=== PATIENT | female | born 1955 | race Caucasian/White ===

== ENCOUNTER 2016-12-17 19:40 | Emergency (ER) | payer MEDICARE, OTHER ==
--- NOTE | 2016-12-17 20:00 | ER Document Report ---
ED Medical Screen (RME) - General Chief Complaint: Breathing Difficulty Stated Complaint: COUGH Mode of Arrival: Ambulatory Information source: Patient Notes: 61 y/o F presents to ED c/o sob over the last 2 days. States sob worse with exertion and laying down. Reports recently diagnosed and treated for PNA. I have greeted and performed a rapid initial assessment of this patient. A comprehensive ED assessment and evaluation of the patient, analysis of test results and completion of the medical decision making process will be conducted by additional ED providers. TRAVEL OUTSIDE OF THE [place] IN LAST 30 DAYS: No - Related Data Allergies/Adverse Reactions: adhesive [Adhesive] Allergy (Severe, Verified 02/17/16 14:22) tears skin codeine [Codeine] Allergy (Severe, Verified 02/17/16 14:22) "crazy" erythromycin base [Erythromycin Base] Allergy (Intermediate, Verified 02/17/16 14:22) Anaphylaxis Penicillins Allergy (Mild, Verified 02/17/16 14:22) Hives levofloxacin [From Levaquin] Adverse Reaction (Severe, Verified 02/17/16 14:22) Swelling of tongue Past Medical History - Past Medical History Cardiac Medical History: Reports: Hx Hypertension - on meds, Hx Peripheral Vascular Disease Denies: Hx Coronary Artery Disease, Hx Heart Attack Pulmonary Medical History: Reports: Hx Asthma, Hx COPD, Hx Pneumonia - hx of, Hx Sleep Apnea - On CPap Denies: Hx Bronchitis Neurological Medical History: Denies: Hx Cerebrovascular Accident, Hx Seizures Renal/ Medical History: Reports: Hx End Stage Renal Disease Musculoskeltal Medical History: Reports Hx Arthritis - "all over" Psychiatric Medical History: Reports: Hx Depression Past Surgical History: Reports: Hx Gastric Bypass Surgery, Hx Orthopedic Surgery - Right TKA, left rotator cuff, Hx Tonsillectomy, Hx Vascular Surgery - Left arm fistula, Other - Stem cell transplant, bone marrow biopsy. Denies: Hx Hysterectomy, Hx Pacemaker - Immunizations Hx Diphtheria, Pertussis, Tetanus Vaccination: Yes Physical Exam - General General appearance: Alert In distress: None - Respiratory Respiratory status: No respiratory distress
--- NOTE | 2016-12-17 20:32 | EKG REPORT ---
SEVERITY:- ABNORMAL ECG - SINUS RHYTHM ANTERIOR INFARCT, OLD : Confirmed by: James Ellis MD 17-Dec-2016 20:31:04
[2016-12-17 20:52] LABS: ABSOLUTE LYMPHOCYTES (AUTO) 0.7 10^3/uL (0.5-4.7); ABSOLUTE MONOCYTES (AUTO) 0.6 10^3/uL (0.1-1.4); ABSOLUTE NEUT (AUTO) 4.6 10^3/uL (1.7-8.2); BASOPHILS % (AUTO) 0.4 % (0-2); EOSINOPHILS % (AUTO) 0.7 % (0-6); HEMATOCRIT 29.8 % (36.0-47.0); HEMOGLOBIN 9.7 g/dL (12.0-15.5); HGB HCT DIFFERENCE -0.7; MEAN CORPUSCULAR HEMOGLOBIN 35.5 pg (27.0-33.4); MEAN CORPUSCULAR HGB CONC 32.4 g/dL (32.0-36.0); MEAN CORPUSCULAR VOLUME 110 fl (80-97); MONOCYTES % (AUTO) 10.4 % (3-13); RED BLOOD COUNT 2.72 10^6/uL (3.72-5.28); RED CELL DISTRIBUTION WIDTH 15.9 % (11.5-14.0); SEGMENTED NEUTROPHILS % (AUTO) 76.5 % (42-78)
--- NOTE | 2016-12-17 21:33 | ER Document Report ---
ED Respiratory Problem - General Chief Complaint: Breathing Difficulty Stated Complaint: COUGH Time seen by provider: 21:30 Mode of Arrival: Ambulatory Notes: Patient is a 61-year-old female that comes emergency department for chief complaint of 2 days of worsening shortness of breath when she lies flat. Patient states otherwise she does not have shortness of breath, she has only occasional cough, she denies fever. Patient is competent medical history including multiple myeloma, on chemotherapy, end-stage renal disease on dialysis Sunday (due tomorrow). Patient denies any fever or chills, vomiting, chest pain. Patient has oxygen to wear at home. TRAVEL OUTSIDE OF THE [place] IN LAST 30 DAYS: No - Related Data Allergies/Adverse Reactions: adhesive [Adhesive] Allergy (Severe, Verified 02/17/16 14:22) tears skin codeine [Codeine] Allergy (Severe, Verified 02/17/16 14:22) "crazy" erythromycin base [Erythromycin Base] Allergy (Intermediate, Verified 02/17/16 14:22) Anaphylaxis Penicillins Allergy (Mild, Verified 02/17/16 14:22) Hives levofloxacin [From Levaquin] Adverse Reaction (Severe, Verified 02/17/16 14:22) Swelling of tongue Past Medical History - General Information source: Patient - Social History Smoking Status: Never Smoker Frequency of alcohol use: None Drug Abuse: None Lives with: Family Family History: CAD - Father, Other - Clotting disorder-father Patient has suicidal ideation: No Patient has homicidal ideation: No - Past Medical History Cardiac Medical History: Reports: Hx Hypertension - on meds, Hx Peripheral Vascular Disease Denies: Hx Coronary Artery Disease, Hx Heart Attack Pulmonary Medical History: Reports: Hx Asthma, Hx COPD, Hx Pneumonia - hx of, Hx Sleep Apnea - On CPap Denies: Hx Bronchitis Neurological Medical History: Denies: Hx Cerebrovascular Accident, Hx Seizures Renal/ Medical History: Reports: Hx End Stage Renal Disease, Hx Peritoneal Dialysis Musculoskeltal Medical History: Reports Hx Arthritis - "all over" Psychiatric Medical History: Reports: Hx Depression Past Surgical History: Reports: Hx Gastric Bypass Surgery, Hx Orthopedic Surgery - Right TKA, left rotator cuff, Hx Tonsillectomy, Hx Vascular Surgery - Left arm fistula, Other - Stem cell transplant, bone marrow biopsy. Denies: Hx Hysterectomy, Hx Pacemaker - Immunizations Hx Diphtheria, Pertussis, Tetanus Vaccination: Yes Hx Pneumococcal Vaccination: 08/26/13 Review of Systems - Review of Systems Constitutional: No symptoms reported EENT: No symptoms reported Cardiovascular: No symptoms reported Respiratory: See HPI Gastrointestinal: No symptoms reported Genitourinary: No symptoms reported Female Genitourinary: No symptoms reported Musculoskeletal: No symptoms reported Skin: No symptoms reported Hematologic/Lymphatic: No symptoms reported Neurological/Psychological: No symptoms reported Physical Exam - Vital signs Vitals: Pulse Ox 97 12/17/16 22:17 Interpretation: Normal - General General appearance: Appears well, Alert In distress: None - Patient comfortable, conversational - HEENT Head: Normocephalic, Atraumatic Eyes: Normal Conjunctiva: Normal Extraocular movements intact: Yes Eyelashes: Normal Pupils: PERRL Nasal: Normal Mouth/Lips: Normal Mucous membranes: Normal Pharynx: Normal Neck: Normal - Respiratory Respiratory status: No respiratory distress. No: Respiratory distress, Tachypnea Chest status: Nontender Breath sounds: Normal. No: Decreased air movement, Rales, Wheezing - Cardiovascular Rhythm: Regular. No: Tachycardia Heart sounds: Normal auscultation, S1 appreciated, S2 appreciated Murmur: No - Abdominal Inspection: Normal Distension: No distension Bowel sounds: Normal Tenderness: Nontender. No: Tender, Guarding Organomegaly: No organomegaly - Back Back: Normal, Nontender. No: Tender - Extremities General upper extremity: Normal inspection, Nontender, Normal color, Normal ROM , Normal temperature General lower extremity: Normal inspection, Nontender, Normal color, Normal ROM , Normal temperature, Normal weight bearing. No: Zaheer's sign - Neurological Neuro grossly intact: Yes Cognition: Normal Orientation: AAOx4 Jareth Coma Scale Eye Opening: Spontaneous [place] Coma Scale Verbal: Oriented Jareth Coma Scale Motor: Obeys Commands Jareth Coma Scale Total: 15 Speech: Normal Cranial nerves: Normal Cerebellar coordination: Normal Motor strength normal: LUE, RUE, LLE, RLE Additional motor exam normals: Equal robotics technician Sensory: Normal - Psychological Associated symptoms: Normal affect, Normal mood - Skin Skin Temperature: Warm Skin Moisture: Dry Skin Color: Normal Course - Re-evaluation Re-evalutation: Reviewed and workup from triage. CBC shows chronic anemia, no significant change from prior. No significant change noted on EKG compared to prior. Chest x-ray shows mild vascular congestion. BNP is elevated, slightly more elevated than previous measurement. Enzymes indeterminate at 0.54 troponin, patient has end-stage renal disease and CHF. Patient is not complaining of any chest pain. On my reevaluation is patient is asymptomatic with no complaints. Patient is a comfortable, has home oxygen she is using, she even has home BiPAP she can use. No hypoxia, tachypnea, blood pressure is starting to get elevated but patient is due for blood pressure medication and she is due for dialysis at 6:00 in the morning. Patient is requesting to leave. Discussed with Dr. Rizvi. Patient is to follow-up with dialysis this morning, patient is to return if she developed chest pain, worsening shortness of breath, fever, peripheral swelling, or any other signs of worsening symptoms. Patient states satisfaction and agreement with plan. Urinalysis finally resulted, delayed because patient was unable to give an initially, this was reviewed and shows white blood cells and trace leukocyte esterase. No bacteria, no nitrites. Patient with no abdominal pain, no urinary symptoms. Sending for culture. - Vital Signs Vital signs: Temp Pulse Resp BP Pulse Ox 22 H 168/109 H 95 12/17/16 23:01 12/17/16 23:01 12/17/16 23:01 - Laboratory Result Diagrams: 12/17/16 20:30 12/17/16 21:17 Laboratory results interpreted by me: 12/17/16 12/17/16 12/17/16 20:30 20:30 21:17 RBC 2.72 L Hgb 9.7 L Hct 29.8 L MCV 110 H MCH 35.5 H RDW 15.9 H Plt Count 104 L Lymphocytes % 12.0 L Carbon Dioxide BUN Creatinine Est GFR ( Amer) Est GFR (Non-Af Amer) Alkaline Phosphatase NT-Pro-B Natriuret Pep 44999 H Total Protein Urine Protein 100 H Ur Leukocyte Esterase SMALL H 12/17/16 21:17 RBC Hgb Hct MCV MCH RDW Plt Count Lymphocytes % Carbon Dioxide 21 L BUN 35 H Creatinine 6.59 H Est GFR ( Amer) 8 L Est GFR (Non-Af Amer) 6 L Alkaline Phosphatase 172 H NT-Pro-B Natriuret Pep Total Protein 5.8 L Urine Protein Ur Leukocyte Esterase Discharge - Discharge Clinical Impression: Shortness of breath, Orthopnea Condition: Stable Disposition: HOME, SELF-CARE Additional Instructions: Chest x-ray shows mild vascular congestion, otherwise no acute abnormalities are seen. No pneumonia is shown. Follow-up with dialysis this morning as planned. Please return the emergency department if he develops any concerning or worsening symptoms including labored breathing, fever, etc.
[2016-12-17 21:44] LABS: ALANINE AMINOTRANSFERASE 27 U/L (9-52); ALBUMIN 3.8 g/dL (3.5-5.0); ALKALINE PHOSPHATASE 172 U/L (38-126); ANION GAP 15 (5-19); ASPARTATE AMINO TRANSFERASE 18 U/L (14-36); BILIRUBIN,TOTAL 0.7 mg/dL (0.2-1.3); BLOOD UREA NITROGEN 35 mg/dL (7-20); CALCIUM 8.8 mg/dL (8.4-10.2); CARBON DIOXIDE 21 mmol/L (22-30); CHLORIDE 107 mmol/L (98-107); CREATINE KINASE 33 U/L (30-135); CREATININE RESULT 6.59 mg/dL (0.52-1.25); GLUCOSE 75 mg/dL (75-110); POTASSIUM 4.1 mmol/L (3.6-5.0); SODIUM 142.9 mmol/L (137-145); TOTAL PROTEIN 5.8 g/dL (6.3-8.2)
[2016-12-17 22:08] LABS: CREATINE KINASE MB 1.06 ng/mL (<4.55)
[2016-12-17 22:10] LABS: TROPONIN I 0.058 ng/mL
[2016-12-17 22:29] LABS: APPEARANCE,URINE SLIGHTLY-CLOUDY; BILIRUBIN,URINE NEGATIVE (NEGATIVE); GLUCOSE, URINE NEGATIVE (NEGATIVE); KETONES,URINE NEGATIVE (NEGATIVE); LEUKOCYTE ESTERASE,URINE SMALL (NEGATIVE); NITRITE,URINE NEGATIVE (NEGATIVE); PROTEIN,URINE 100 mg/dL (NEGATIVE); URINE SPECIFIC GRAVITY 1.013; UROBILINOGEN,URINE NEGATIVE mg/dL (<2.0)
[2016-12-17 23:21] VITALS: BP 168/109
== END 2016-12-17 23:42 | disposition home or self-care (01) ==
LOC: ER 19:40
DX: J44.9 Chronic obstructive pulmonary disease, unspecified (principal); J45.909 Unspecified asthma, uncomplicated; D64.9 Anemia, unspecified; I13.2 Hypertensive heart and chronic kidney disease with heart failure and with stage 5 chronic kidney disease, or end stage renal disease; I50.9 Heart failure, unspecified; N18.6 End stage renal disease; R06.01 Orthopnea; R09.89 Other specified symptoms and signs involving the circulatory and respiratory systems; R05 Cough; Z99.2 Dependence on renal dialysis; Z79.899 Other long term (current) drug therapy; C90.00 Multiple myeloma not having achieved remission; Z99.81 Dependence on supplemental oxygen; Z91.048 Other nonmedicinal substance allergy status; Z88.5 Allergy status to narcotic agent; Z88.1 Allergy status to other antibiotic agents; Z88.0 Allergy status to penicillin; Z82.49 Family history of ischemic heart disease and other diseases of the circulatory system; Z87.01 Personal history of pneumonia (recurrent); Z98.84 Bariatric surgery status
CPT/HCPCS: 36415; 71020; 80053; 81001; 82550; 82553; 83880; 84484; 85025; 87086; 93005; 93010; 99285

== ENCOUNTER 2017-01-09 10:35 | Day surgery (SDC) | payer OTHER, MEDICARE ==
[~2017-01-09 10:35] MED LIST: BACITRACIN INJ 50,000 UNIT VIAL MC ONE; BACITRACIN INJ 50,000 UNIT VIAL MC PRN; VANCOMYCIN HCL 500 MG in DEXTROSE 5%-WATER 100 ML IV PRN
[2017-01-09 11:22] LABS: ABSOLUTE EOSINOPHILS # (AUTO) 0.1 10^3/uL (0.0-0.6); ABSOLUTE LYMPHOCYTES (AUTO) 1.1 10^3/uL (0.5-4.7); ABSOLUTE MONOCYTES (AUTO) 0.5 10^3/uL (0.1-1.4); ABSOLUTE NEUT (AUTO) 5.4 10^3/uL (1.7-8.2); BASOPHILS % (AUTO) 0.4 % (0-2); EOSINOPHILS % (AUTO) 1.4 % (0-6); HEMATOCRIT 38.6 % (36.0-47.0); HEMOGLOBIN 12.6 g/dL (12.0-15.5); HGB HCT DIFFERENCE -0.8; LYMPHOCYTES % (AUTO) 15.3 % (13-45); MEAN CORPUSCULAR HEMOGLOBIN 34.7 pg (27.0-33.4); MEAN CORPUSCULAR HGB CONC 32.7 g/dL (32.0-36.0); MONOCYTES % (AUTO) 6.9 % (3-13); RED BLOOD COUNT 3.64 10^6/uL (3.72-5.28); RED CELL DISTRIBUTION WIDTH 17.4 % (11.5-14.0); WHITE BLOOD COUNT 7.1 10^3/uL (4.0-10.5)
[2017-01-09 11:26] LABS: MEAN CORPUSCULAR VOLUME 106 fl (80-97)
[2017-01-09] MEDS ORDERED: OXYCODONE-ACETAMINOPHEN 5-325 MG TABLET ONE (12:01)
[2017-01-09] MEDS ORDERED: DIAZEPAM 5 MG TABLET ONE (12:01)
[2017-01-09] MEDS ORDERED: LIDOCAINE 0.5% INJ-PF (5 MG/ML) 50 ML SDV ONE (12:10)
[2017-01-09] MEDS ORDERED: FENTANYL CITRATE INJ/PF 100 MCG/2 ML AMPUL ONE (12:34)
[2017-01-09] MEDS ORDERED: MIDAZOLAM 2 MG/2 ML INJ ONE (12:34)
[2017-01-09] MEDS ORDERED: CLINDAMYCIN 300 MG/D5W RTU 300 MG/50 ML RTUPB IV ONE (13:15)
--- NOTE | 2017-01-09 14:06 | PDOC DISCHARGE SUMMARY ---
Discharge Summary (SDC) - Discharge Final Diagnosis: #1 multiple myeloma. #2 left arm AV graft. #3 end-stage renal disease on hemodialysis. #4 multiple comorbidities. Date of Surgery: 01/09/17 Discharge Date: 01/09/17 Condition: Fair Treatment or Instructions: #1 activities within moderation encouraged. #2 follow up in my office by appointment in about 1 week. Call for appointment. #3 the wounds covered clean and dry until office visit. #4 hold off on school/work until evaluation in office. #5 may shower in 48 hours, keep operated area as dry as possible. #6 discharge from ambulatory when ASU criteria met. #7 medications per medication reconciliation sheet. #8 Percocet by prescription.. Also may have one Percocet up to every 4 hours when necessary for pain greater than 4 out of 10 while in the ASU Prescriptions: Oxycodone HCl/Acetaminophen [Percocet 5-325 mg Tablet] 1 tab PO ASDIR PRN #15 tab PRN Reason: Discharge Diet: Other (Comments) - Renal Respiratory Treatments at Home: Deep Breathing/Coughing Discharge Activity: Activity As Tolerated Report the Following to Your Physician Immediately: Unusual Bleeding
--- NOTE | 2017-01-09 14:09 | Operative Report ---
Operative Report DATE OF SURGERY: 01/09/17 PREOPERATIVE DIAGNOSIS: #1 multiple myeloma. #2 left arm AV graft. #3 end- stage renal disease on hemodialysis. #4 multiple comorbidities. POSTOPERATIVE DIAGNOSIS: #1 multiple myeloma. #2 left arm AV graft. #3 end- stage renal disease on hemodialysis. #4 multiple comorbidities. OPERATION: #1 ultrasound guided insertion of right femoral vein catheter. SURGEON: MARK VELARDE PELLETIZER TENDER: none ANESTHESIA: Local TISSUE REMOVED OR ALTERED: Not applicable. COMPLICATIONS: None ESTIMATED BLOOD LOSS: 2 mL. INTRAOPERATIVE FINDINGS: Of a very small right femoral vein more under the artery then medial to it. Guidance was of great efficacy in getting safe access. Access obtained and functioning central line inserted. PROCEDURE: After obtaining informed consent, the patient was positioned supine in the catheter lab. The right groin and adjacent areas] were prepared with chlorhexidine and draped out with sterile linen. After the universal timeout the procedure commenced. A steriley sheathed ultrasound probe was used to evaluate the right femoral vein. Local anesthesia was infiltrated adjacent to the probe. Access into the right femoral was accomplished using a micropuncture needle followed, by micropuncture wire and then with a micropuncture catheter. This was followed by introduction of a 0.035 guidewire, the skin opening was enlarged slightly, serially larger dilators were now placed followed by introduction of a trial lumen catheter. All of these transitions were smooth. Each lumen was aspirated of blood and irrigated with heparinized solution. The catheter was now sutured to the skin using 3-0 nylon. A Bio A patch was now applied, followed by sterile dressings. Caps were placed on the end of the each of the lumens. The procedure concluded. Copies dictated operative report to Dr. Mark Smith MD.
--- NOTE | 2017-01-09 14:14 | Operative Report ---
Operative Report DATE OF SURGERY: 01/09/17 PREOPERATIVE DIAGNOSIS: #1 multiple myeloma. #2 left arm AV graft. #3 end- stage renal disease on hemodialysis. #4 multiple comorbidities. POSTOPERATIVE DIAGNOSIS: #1 multiple myeloma. #2 left arm AV graft. #3 end- stage renal disease on hemodialysis. #4 multiple comorbidities. OPERATION: #1 ultrasound guided insertion of right femoral vein catheter. SURGEON: MARK VELARDE COTTON GRADER: none ANESTHESIA: Local TISSUE REMOVED OR ALTERED: Not applicable. COMPLICATIONS: None ESTIMATED BLOOD LOSS: 2 mL. INTRAOPERATIVE FINDINGS: This patient in end-stage renal disease on hemodialysis through a left arm AV graft is a very great vascular access challenge. Requires intervention just about once a month to keep it open. Her veins are really small including the right femoral which is accessed for sedation today. The right internal jugular is fibrosis with only a few small tributaries. The left internal jugular vein is patent as is a portion of the external jugular. The external jugular vein was used for access and placement of the Port-A-Cath. Use of the left side was unavoidable in this case as the patient has no reasonable other options. Failing that it will be femorals. Satisfactory access was gained in the left jugular vein. Transiting into the innominate and from the innominate to the superior vena cava were challenging and required considerable manipulation. This included use of a 0.018 Glidewire and a 0.0350 wire. The latter gave excellent support for placement of the introducer sheath and the catheter. Satisfactory catheter position was obtained with the tip in the upper right atrium. Satisfactory flow of contrast through the right atrium, ventricle and pulmonary outflow tract. Documented. Easy egress of blood and ingress of heparinized solution. A tiny area of extravasation in the mediastinum was identified, testing to the challenge getting around the bend's in the innominate and superior vena cava. PROCEDURE: After obtaining informed consent, the patient was taken to the Project Controls Scheduler and positioned supine. Both sides of the neck were evaluated by ultrasound and the left selected based on the findings. The left neck and chest were prepared with chlorhexidine and draped out with sterile linen. After the " universal timeout", in which it was verified that the patient continued to receive antibiotic, the procedure commenced. A steriley sheathed ultrasound probe was used to evaluate the [right] internal jugular vein. Local anesthesia was infiltrated adjacent to the probe. Access into the left internal jugular vein was obtained using a micropuncture needle, via the external jugular vein, followed by micropuncture wire and then a micropuncture catheter. This was followed by introduction of a 0.035 guidewire the tip of which was placed down into the inferior vena cava . The port sites was marked , locally anesthetized and incision made. Dissection now proceeded to the deep subcutaneous subcutaneous tissues so that a pocket for the port was made. Meticulous hemostasis was secured and the catheter was tunneled between the 2 incisions. Proximally, the catheter was now positioned using a peel-away sheath. Distally the catheter was tailored to an appropriate length and then mated to the port using the contained fixating device. The port was now placed in the pocket and the catheter optimally positioned. The port was accessed with a Rosado needle and an angiogram done under digital subtraction. The findings as dictated. With adequate and satisfactory positioning, both lumens of the chamber were irrigated with heparinized solution. The wounds were now closed using interrupted 3-0 PDS to the subcutaneous tissues and a continuous subcuticular suture of 4-0 Monocryl to the skin. These are reinforced with Steri-Strips over benzoin and then dressings applied. Time: 2.5 Minute. Dose: 46 m Gy Contrast: 5 mls. Isovue 300. Copies of the dictated operative report for Dr. Mark Smith MD.
[2017-01-09 15:38] VITALS: BP 128/72
--- NOTE | 2017-01-09 23:53 | EKG REPORT ---
SEVERITY:- ABNORMAL ECG - SINUS RHYTHM PROBABLE LEFT ATRIAL ABNORMALITY ANTERIOR INFARCT, AGE INDETERMINATE : Confirmed by: Cisco Rojo 09-Jan-2017 23:52:34
== END 2017-01-09 15:05 | disposition home or self-care (01) ==
LOC: CCL 10:35
PROVIDERS: ATTEND Surgery
PROC: 06HM33Z Insertion of Infusion Device into Right Femoral Vein, Percutaneous Approach (ICD-10-PCS; principal; 2017-01-09)
DX: C90.00 Multiple myeloma not having achieved remission (principal); N18.6 End stage renal disease; D47.2 Monoclonal gammopathy; Z99.2 Dependence on renal dialysis; Z88.0 Allergy status to penicillin; Z88.1 Allergy status to other antibiotic agents; I12.0 Hypertensive chronic kidney disease with stage 5 chronic kidney disease or end stage renal disease; Z79.82 Long term (current) use of aspirin; Z79.899 Other long term (current) drug therapy
CPT/HCPCS: 36415; 85025; 36561; 76937; 77001; 71010; 93005; 93010; J2250; J3490 ×3; J3010; J3370; J1644

== ENCOUNTER → 2017-02-09 | Outpatient (CLI) | payer OTHER, MEDICARE | LOC: RAD 12:58 | PROVIDERS: ATTEND Specialist | DX: C90.01 Multiple myeloma in remission (principal) | CPT/HCPCS: 78816; A9552 ==

== ENCOUNTER 2017-02-10 23:53 | Emergency (ER) | payer OTHER, MEDICARE ==
--- NOTE | 2017-02-11 01:07 | ER Document Report ---
ED Extremity Problem, Lower - General Chief Complaint: Knee Pain Stated Complaint: RIGHT KNEE PAIN Time seen by provider: 01:05 Mode of Arrival: Wheelchair Information source: Patient Notes: 62-year-old female complaining of right anterior knee pain with swelling, redness, and warmth since Sunday night. getting worse since then. She is a history of gout, chemotherapy for multiple myeloma. phone nurse told her to come check within 4 hours to see if she had a DVT. TRAVEL OUTSIDE OF THE [place] IN LAST 30 DAYS: No - Related Data Allergies/Adverse Reactions: adhesive [Adhesive] Allergy (Severe, Verified 02/11/17 00:11) tears skin codeine [Codeine] Allergy (Severe, Verified 02/11/17 00:11) "crazy" erythromycin base [Erythromycin Base] Allergy (Intermediate, Verified 02/11/17 00:11) Anaphylaxis Penicillins Allergy (Mild, Verified 02/11/17 00:11) Hives levofloxacin [From Levaquin] Adverse Reaction (Severe, Verified 02/11/17 00:11) Swelling of tongue Past Medical History - General Information source: Patient - Social History Smoking Status: Current Every Day Smoker Chew tobacco use (# tins/day): No Frequency of alcohol use: Social Drug Abuse: None Family History: CAD - Father, Other - Clotting disorder-father Patient has suicidal ideation: No Patient has homicidal ideation: No - Past Medical History Cardiac Medical History: Reports: Hx Heart Attack, Hx Hypertension - on meds, Hx Peripheral Vascular Disease Pulmonary Medical History: Reports: Hx Asthma, Hx COPD, Hx Pneumonia - hx of, Hx Sleep Apnea - On CPap Renal/ Medical History: Reports: Hx End Stage Renal Disease, Hx Hemodialysis Malignancy Medical History: Reports: Other - Multiple myeloma Musculoskeltal Medical History: Reports Hx Arthritis - "all over" Psychiatric Medical History: Reports: Hx Depression Past Surgical History: Reports: Hx Gastric Bypass Surgery, Hx Orthopedic Surgery - Right TKA, left rotator cuff, Hx Tonsillectomy, Hx Vascular Surgery - Left arm fistula, Other - Stem cell transplant, bone marrow biopsy, Port-A-Cath - Immunizations Hx Diphtheria, Pertussis, Tetanus Vaccination: Yes Hx Pneumococcal Vaccination: 08/26/13 Review of Systems - Review of Systems Constitutional: No symptoms reported EENT: No symptoms reported Cardiovascular: No symptoms reported Respiratory: No symptoms reported Gastrointestinal: No symptoms reported Genitourinary: No symptoms reported Female Genitourinary: No symptoms reported Musculoskeletal: See HPI Skin: No symptoms reported Hematologic/Lymphatic: No symptoms reported Neurological/Psychological: No symptoms reported Physical Exam - Vital signs Vitals: Temp Pulse Resp BP Pulse Ox 98.7 F 83 16 143/77 H 100 02/11/17 00:00 02/11/17 00:00 02/11/17 00:00 02/11/17 00:00 02/11/17 00:00 Interpretation: Normal - General General appearance: Appears well, Alert - HEENT Head: Normocephalic, Atraumatic Eyes: Normal Conjunctiva: Normal Pupils: PERRL Neck: Supple - Respiratory Respiratory status: No respiratory distress Chest status: Nontender Breath sounds: Normal Chest palpation: Normal - Cardiovascular Rhythm: Regular Heart sounds: Normal auscultation Murmur: No - Back Back: Normal, Nontender - Extremities General upper extremity: Normal inspection, Nontender, Normal color, Normal ROM , Normal temperature General lower extremity: Normal inspection, Nontender, Normal color, Normal ROM , Normal temperature, Normal weight bearing. No: Zaheer's sign Knee: Tender - anterior right knee, red, warm, ? minimal effusion, some increase in pain with flexion Notes: faint pulses in right foot, will check with doppler - Neurological Neuro grossly intact: Yes Cognition: Normal Orientation: AAOx4 [place] Coma Scale Eye Opening: Spontaneous [place] Coma Scale Verbal: Oriented Jareth Coma Scale Motor: Obeys Commands [place] Coma Scale Total: 15 Speech: Normal Motor strength normal: LUE, RUE, LLE, RLE Sensory: Normal - Psychological Associated symptoms: Normal affect, Normal mood - Skin Skin Temperature: Warm Skin Moisture: Dry Skin Color: Normal Skin irregularity: negative: Rash Course - Re-evaluation Re-evalutation: 02/11/17 03:07 No effusion on x-ray. CBC is normal. 02/11/17 03:44 Uric acid is negative. Patient is supposed to have a angiogram on Sunday for the dialysis port. She is scheduled for dialysis on Sunday. The knee is less red than it was and is tender over the patellar tendon. The bursa is normal. B I will treat with prednisone and antibiotics. I suspect that this is a tendinitis or non-uric acid inflammation of the knee. She states she will follow-up with the orthopedic surgeon that did the knee replacement 7 years agp. most tender over the patellar tendon. No skin cellulitis. 02/11/17 03:59 - Vital Signs Vital signs: Temp Pulse Resp BP Pulse Ox 98.7 F 83 16 143/77 H 100 02/11/17 00:04 02/11/17 00:04 02/11/17 00:04 02/11/17 00:04 02/11/17 00:04 - Laboratory Result Diagrams: 02/11/17 02:50 02/11/17 02:50 Laboratory results interpreted by me: 02/11/17 02/11/17 02:50 02:50 RBC 3.23 L Hgb 11.0 L Hct 33.4 L MCV 103 H MCH 34.1 H RDW 16.9 H Plt Count 104 L BUN 48 H Creatinine 6.31 H Est GFR ( Amer) 8 L Est GFR (Non-Af Amer) 7 L Alkaline Phosphatase 155 H Total Protein 5.8 L Discharge - Discharge Clinical Impression: right anterior knee inflammation Condition: Good Disposition: HOME, SELF-CARE Instructions: Clindamycin ([facility]), Ice & Elevation ([facility]), Steroid Medication, Tendonitis ([facility]) Additional Instructions: ice, elevate use the walker see your orthopedic dr as planned next week Prescriptions: Clindamycin HCl [Cleocin 150 mg Capsule] 300 mg PO TID #42 capsule Prednisone [Deltasone 10 mg Tablet] 10 mg PO ASDIR PRN #21 tablet PRN Reason: Referrals: DAYSI DORSEY MD [Primary Care Provider] - Follow up as needed
[2017-02-11] MEDS ORDERED: LIDOCAINE 4%/TETRACAINE 0.5%/EPI 0.18% 5 ML TOPICAL SOLN TOP ONE ×2 (01:20→02:03)
[2017-02-11 02:57] LABS: ABSOLUTE EOSINOPHILS # (AUTO) 0.1 10^3/uL (0.0-0.6); ABSOLUTE MONOCYTES (AUTO) 0.6 10^3/uL (0.1-1.4); ABSOLUTE NEUT (AUTO) 5.2 10^3/uL (1.7-8.2); BASOPHILS % (AUTO) 0.4 % (0-2); EOSINOPHILS % (AUTO) 1.4 % (0-6); HEMATOCRIT 33.4 % (36.0-47.0); HGB HCT DIFFERENCE -0.4; LYMPHOCYTES % (AUTO) 13.9 % (13-45); MEAN CORPUSCULAR HEMOGLOBIN 34.1 pg (27.0-33.4); MEAN CORPUSCULAR VOLUME 103 fl (80-97); RED BLOOD COUNT 3.23 10^6/uL (3.72-5.28); RED CELL DISTRIBUTION WIDTH 16.9 % (11.5-14.0); SEGMENTED NEUTROPHILS % (AUTO) 75.3 % (42-78); WHITE BLOOD COUNT 6.9 10^3/uL (4.0-10.5)
[2017-02-11 03:13] LABS: ALANINE AMINOTRANSFERASE 20 U/L (9-52); ALBUMIN 3.6 g/dL (3.5-5.0); ALKALINE PHOSPHATASE 155 U/L (38-126); ANION GAP 19 (5-19); ASPARTATE AMINO TRANSFERASE 15 U/L (14-36); BILIRUBIN,TOTAL 0.4 mg/dL (0.2-1.3); BLOOD UREA NITROGEN 48 mg/dL (7-20); CALCIUM 8.8 mg/dL (8.4-10.2); CARBON DIOXIDE 23 mmol/L (22-30); CHLORIDE 100 mmol/L (98-107); CREATININE RESULT 6.31 mg/dL (0.52-1.25); GLUCOSE 90 mg/dL (75-110); POTASSIUM 3.8 mmol/L (3.6-5.0); SODIUM 141.9 mmol/L (137-145); TOTAL PROTEIN 5.8 g/dL (6.3-8.2); URIC ACID 4.3 mg/dL (2.5-7.5)
[2017-02-11] MEDS ORDERED: CLINDAMYCIN HCL 150 MG CAPSULE PO ONE (03:48)
[2017-02-11] MEDS ORDERED: PREDNISONE 20 MG TABLET PO ONE (03:50)
[2017-02-11 04:57] VITALS: BP 135/75
== END 2017-02-11 04:40 | disposition home or self-care (01) ==
LOC: ER 23:53
DX: M17.11 Unilateral primary osteoarthritis, right knee (principal); M25.561 Pain in right knee; F17.200 Nicotine dependence, unspecified, uncomplicated; J44.9 Chronic obstructive pulmonary disease, unspecified; I12.0 Hypertensive chronic kidney disease with stage 5 chronic kidney disease or end stage renal disease; N18.6 End stage renal disease; Z96.651 Presence of right artificial knee joint; Z88.0 Allergy status to penicillin; Z88.6 Allergy status to analgesic agent; Z98.84 Bariatric surgery status; Z99.2 Dependence on renal dialysis; I25.2 Old myocardial infarction
CPT/HCPCS: 36591; 99283; 36415; 84550; 85025; 80053; 73564; J7512; J3490

== ENCOUNTER 2017-11-05 12:33 | Emergency (ER) | payer OTHER, MEDICARE ==
[2017-11-05] MEDS ORDERED: IPRATROPIUM/ALBUTEROL 0.5-2.5 MG/3 ML AMPUL NEB ONE (13:01)
--- NOTE | 2017-11-05 13:01 | ER Document Report ---
ED Medical Screen (RME) - General Mode of Arrival: Ambulatory Information source: Patient TRAVEL OUTSIDE OF THE [place] IN LAST 30 DAYS: No COUNTRY TRAVELED TO/FROM: [place] <RUEL MAI - Last Filed: 11/05/17 13:57> <JERRELL GARCIA - Last Filed: 11/05/17 18:40> - General Chief Complaint: Shortness Of Breath Stated Complaint: COUGH,CONGESTION,SHORT OF BREATH Time Seen by Provider: 11/05/17 12:55 Notes: Patient is a 62 year old female with a history of myeloma cancer and pneumonia presents to the emergency department complaining of multiple symptoms including cough with green sputum, congestion and shortness of breath onset 2 days ago. Patient states that she also had a low grade fever 2 nights ago. Patient was sent here by Dr. Bower after receiving dialysis this morning. Patient states that she has oxygen at home that she uses as needed. GENERAL: Alert, interacts well. No acute distress. LUNGS: Coarseness with mild wheezing. No respiratory distress. HEART: Regular rate and rhythm. No murmurs, gallops, or rubs. I have greeted and performed a rapid initial assessment of this patient. A comprehensive ED assessment and evaluation of the patient, analysis of test results and completion of the medical decision making process will be conducted by additional ED providers. (RUEL MAI) - Related Data Allergies/Adverse Reactions: adhesive [Adhesive] Allergy (Severe, Verified 11/05/17 12:35) tears skin codeine [Codeine] Allergy (Severe, Verified 11/05/17 12:35) "crazy" erythromycin base [Erythromycin Base] Allergy (Intermediate, Verified 11/05/17 12:35) Anaphylaxis Penicillins Allergy (Mild, Verified 11/05/17 12:35) Hives levofloxacin [From Levaquin] Adverse Reaction (Severe, Verified 11/05/17 12:35) Swelling of tongue Home Medications: Current Home Medications Folic Acid/Vit B Complex and C [Dialyvite 800 Tablet] 1 tab PO DAILY 11/05/17 [ History] Metoprolol Tartrate [Lopressor 100 mg Tablet] 1 tab PO BID 11/05/17 [History] Past Medical History - Past Medical History Cardiac Medical History: Reports: Hx Heart Attack - POSSIBLE CT IN 2014?, Hx Hypertension - ON MEDICATION, Hx Peripheral Vascular Disease Denies: Hx Coronary Artery Disease Pulmonary Medical History: Reports: Hx Bronchitis, Hx Pneumonia - HX. OF OCTOBER 2016, Hx Sleep Apnea - On CPap Denies: Hx Asthma, Hx COPD Neurological Medical History: Denies: Hx Cerebrovascular Accident, Hx Seizures Renal/ Medical History: Reports: Hx End Stage Renal Disease, Hx Hemodialysis, Hx Peritoneal Dialysis Musculoskeltal Medical History: Reports Hx Arthritis - ALL OVER Psychiatric Medical History: Reports: Hx Depression Past Surgical History: Reports: Hx Gastric Bypass Surgery, Hx Orthopedic Surgery - Right TKA, left rotator cuff, Hx Tonsillectomy, Hx Vascular Surgery - Left arm fistula, Other - Stem cell transplant, bone marrow biopsy, Port-A- Cath. Denies: Hx Hysterectomy, Hx Pacemaker - Immunizations Hx Diphtheria, Pertussis, Tetanus Vaccination: Yes History of Influenza Vaccine for 08/2017 - 01/2018 Season: Yes Influenza Administration Date for 08/2017 - 01/2018 Season: 08/25/17 <RUEL MAI - Last Filed: 11/05/17 13:57> - Vital signs Vitals: Temp Pulse Resp BP Pulse Ox 99.7 F 96 18 154/85 H 92 11/05/17 12:42 11/05/17 12:42 11/05/17 12:42 11/05/17 12:42 11/05/17 12:42 Course - Laboratory Result Diagrams: 11/05/17 15:52 11/05/17 15:52 <JERRELL GARCIA - Last Filed: 11/05/17 18:40> - Vital Signs Vital signs: Temp Pulse Resp BP Pulse Ox 102.1 F H 103 H 20 136/81 H 90 L 11/05/17 18:33 11/05/17 18:33 11/05/17 18:33 11/05/17 18:33 11/05/17 18:33 - Laboratory Laboratory results interpreted by me: 11/05/17 11/05/17 15:52 15:52 RBC 2.73 L Hgb 9.4 L Hct 28.4 L MCV 104 H MCH 34.6 H RDW 16.7 H Plt Count 107 L Seg Neutrophils % 83.8 H Lymphocytes % 7.5 L Absolute Lymphocytes 0.4 L BUN 21 H Creatinine 4.17 H Est GFR ( Amer) 13 L Est GFR (Non-Af Amer) 11 L Direct Bilirubin 0.6 H Alkaline Phosphatase 153 H Total Protein 5.9 L Doctor's Discharge <RUEL MAI - Last Filed: 11/05/17 13:57> <JERRELL GARCIA - Last Filed: 11/05/17 18:40> - Discharge Clinical Impression: Nasal congestion, Cough Condition: Good Disposition: HOME, SELF-CARE Additional Instructions: Please come back immediately with any worsening cough, fevers, vomiting, leg swelling, pain, worsening shortness of breath, or any other acute problems. Please take 2 puffs of the albuterol inhaler every 4-6 hours as needed for the next 48 hours. Please make sure that she follow-up with your primary care physician as we have discussed and have help to expedite. Referrals: NOAM JIMENEZ MD [ACTIVE STAFF] - Follow up as needed Scribe Documentation - Scribe Written by Adame:: Heaven Quinteros, 11/05/2017 13:12 acting as scribe for :: Emil <RUEL MAI - Last Filed: 11/05/17 13:57>
--- NOTE | 2017-11-05 13:33 | EKG REPORT ---
SEVERITY:- ABNORMAL ECG - SINUS RHYTHM BIATRIAL ABNORMALITIES CONSIDER ANTEROSEPTAL INFARCT NONSPECIFIC T ABNORMALITIES, LATERAL LEADS BORDERLINE PROLONGED QT INTERVAL : Confirmed by: Cisco Rojo 05-Nov-2017 13:32:12
[2017-11-05] MEDS ORDERED: LIDOCAINE 4% TRANSPARENT DRESSING 5 GM KIT TP ONE (13:56)
--- NOTE | 2017-11-05 14:03 | RADIOLOGY REPORT (SQ) ---
EXAM DESCRIPTION: CHEST PA/LAT COMPLETED DATE/TIME: 11/05/2017 1:51 pm REASON FOR STUDY: Dyspnea COMPARISON: 09/11/2017 EXAM PARAMETERS: NUMBER OF VIEWS: two views TECHNIQUE: Digital Frontal and Lateral radiographic views of the chest acquired. RADIATION DOSE: NA LIMITATIONS: none FINDINGS: LUNGS AND PLEURA: No opacities, masses or pneumothorax. No pleural effusion. MEDIASTINUM AND HILAR STRUCTURES: No masses or contour abnormalities. HEART AND VASCULAR STRUCTURES: Heart normal size. No evidence for failure. BONES: No acute findings. HARDWARE: Unchanged position of left-sided port. Left axillary stent. OTHER: No other significant finding. IMPRESSION: NO ACUTE RADIOGRAPHIC FINDING IN THE CHEST. TECHNICAL DOCUMENTATION: JOB ID: [id number] [employer]- All Rights Reserved
--- NOTE | 2017-11-05 15:42 | ER Document Report ---
ED Respiratory Problem - General Chief Complaint: Shortness Of Breath Stated Complaint: COUGH,CONGESTION,SHORT OF BREATH Time Seen by Provider: 11/05/17 12:55 Mode of Arrival: Ambulatory Information source: Patient Notes: Patient is a 62-year-old female with past medical history of multiple myeloma as well as end-stage renal disease on dialysis, Sunday. Patient presented today with 2 days of runny nose, congestion, low-grade fevers , and cough. No vomiting or diarrhea. Patient takes bimonthly doses of Valcade since his stem cell transplant was performed last February. Her last dose was last Sunday. Patient went to the primary care physician's office who sent the patient here for further evaluation. Patient did complete a full dialysis session this morning. The patient's primary care physician is Dr. Chele Hassan. The patient's utility bill collector is Dr. Massey TRAVEL OUTSIDE OF THE [place] IN LAST 30 DAYS: No COUNTRY TRAVELED TO/FROM: [facility] Patient complains to provider of: Cough, Short of breath Onset: Other - See above Duration: Better Quality of pain: No pain Severity: Mild Pain Level: 0 Context: Other - See above Short of Breath: Mild Cough: Productive Sputum amount: Scant Sputum color: Clear Associated symptoms: Other - See above Similar symptoms previously: Yes Recently seen / treated by doctor: Yes - Related Data Allergies/Adverse Reactions: adhesive [Adhesive] Allergy (Severe, Verified 11/05/17 12:35) tears skin codeine [Codeine] Allergy (Severe, Verified 11/05/17 12:35) "crazy" erythromycin base [Erythromycin Base] Allergy (Intermediate, Verified 11/05/17 12:35) Anaphylaxis Penicillins Allergy (Mild, Verified 11/05/17 12:35) Hives levofloxacin [From Levaquin] Adverse Reaction (Severe, Verified 11/05/17 12:35) Swelling of tongue Home Medications: Current Home Medications Folic Acid/Vit B Complex and C [Dialyvite 800 Tablet] 1 tab PO DAILY 11/05/17 [ History] Metoprolol Tartrate [Lopressor 100 mg Tablet] 1 tab PO BID 11/05/17 [History] Past Medical History - General Information source: Patient - Social History Smoking Status: Former Smoker Cigarette use (# per day): No Chew tobacco use (# tins/day): No Smoking Education Provided: No Frequency of alcohol use: None Drug Abuse: None Family History: CAD - Father, Other - Clotting disorder-father Patient has suicidal ideation: No Patient has homicidal ideation: No - Past Medical History Cardiac Medical History: Reports: Hx Heart Attack - POSSIBLE DC IN 2014?, Hx Hypertension - ON MEDICATION, Hx Peripheral Vascular Disease Denies: Hx Coronary Artery Disease Pulmonary Medical History: Reports: Hx Bronchitis, Hx Pneumonia - HX. OF OCTOBER 2016, Hx Sleep Apnea - On CPap Denies: Hx Asthma, Hx COPD Neurological Medical History: Denies: Hx Cerebrovascular Accident, Hx Seizures Renal/ Medical History: Reports: Hx End Stage Renal Disease, Hx Hemodialysis, Hx Peritoneal Dialysis Musculoskeltal Medical History: Reports Hx Arthritis - ALL OVER Psychiatric Medical History: Reports: Hx Depression Past Surgical History: Reports: Hx Gastric Bypass Surgery, Hx Orthopedic Surgery - Right TKA, left rotator cuff, Hx Tonsillectomy, Hx Vascular Surgery - Left arm fistula, Other - Stem cell transplant, bone marrow biopsy, Port-A- Cath. Denies: Hx Hysterectomy, Hx Pacemaker - Immunizations Hx Diphtheria, Pertussis, Tetanus Vaccination: Yes Hx Pneumococcal Vaccination: 08/26/13 Review of Systems - Review of Systems Constitutional: denies: Fever EENT: Nose congestion, Nose discharge. denies: Eye discharge Cardiovascular: denies: Chest pain, Palpitations Respiratory: denies: Short of breath Gastrointestinal: denies: Vomiting Genitourinary: denies: Dysuria Musculoskeletal: denies: Leg swelling Skin: Other - no hives. denies: Rash Neurological/Psychological: Other - no slurred speech -: Yes All other systems reviewed and negative Physical Exam - Vital signs Vitals: Temp Pulse Resp BP Pulse Ox 99.7 F 96 18 154/85 H 92 11/05/17 12:42 11/05/17 12:42 11/05/17 12:42 11/05/17 12:42 11/05/17 12:42 Notes: Reviewed vital signs and nursing note as charted by RN. CONSTITUTIONAL: Alert and oriented and responds appropriately to questions. Well -appearing; well-nourished HEAD: Normocephalic; atraumatic EYES: PERRL; Conjunctivae clear, sclerae non-icteric ENT: Normal nose; bilateral nonpurulent nasal rhinorrhea; moist mucous membranes ; pharynx without lesions noted NECK: Supple without meningismus; non-tender; no cervical lymphadenopathy, no masses CARD: Regular rate and rhythm; no murmurs, no clicks, no rubs, no gallops; symmetric distal pulses RESP: Normal chest excursion without splinting or tachypnea; breath sounds clear and equal bilaterally; minimal expiratory wheezing. Scattered rhonchi. No rales present. No swelling, erythema, or induration to the Port-A-Cath site ABD/GI: Normal bowel sounds; non-distended; soft, non-tender BACK: The back appears normal and is non-tender to palpation, there is no CVA tenderness EXT: Normal ROM in all joints; non-tender to palpation; no cyanosis, no effusions, no edema SKIN: No acute lesions noted NEURO: Moves all extremities equally; Motor and sensory function intact PSYCH: The patient's mood and manner are appropriate. Grooming and personal hygiene are appropriate. Course - Re-evaluation Re-evalutation: Given the above history and physical examination we will order an x-ray of the chest, basic labs, lactic acid level, and blood cultures. I am concerned about a possible pneumonia in this immunocompromised patient. EKG shows a heart of 98, normal sinus rhythm, normal axis, no obvious ST elevation or depression. Old EKG from September 13 shows no obvious appreciable change. Labs as recorded. Patient is not neutropenic. Chemistry unremarkable. X-ray of the chest shows no obvious pneumonia. Patient's room air repeat oxygen saturation is 95%. Patient still denies any pain. I called and spoke to the primary care physician Dr. Mcconnell who is aware of the full history and physical examination. Given the scant end expiratory wheezing bilaterally, I will provide an albuterol inhaler for comfort at home. Patient is on oxygen as needed as needed. - Vital Signs Vital signs: Temp Pulse Resp BP Pulse Ox 99.7 F 96 18 154/85 H 92 11/05/17 12:42 11/05/17 12:42 11/05/17 12:42 11/05/17 12:42 11/05/17 12:42 - Laboratory Result Diagrams: 11/05/17 15:52 11/05/17 15:52 Laboratory results interpreted by me: 11/05/17 11/05/17 15:52 15:52 RBC 2.73 L Hgb 9.4 L Hct 28.4 L MCV 104 H MCH 34.6 H RDW 16.7 H Plt Count 107 L Seg Neutrophils % 83.8 H Lymphocytes % 7.5 L Absolute Lymphocytes 0.4 L BUN 21 H Creatinine 4.17 H Est GFR ( Amer) 13 L Est GFR (Non-Af Amer) 11 L Direct Bilirubin 0.6 H Alkaline Phosphatase 153 H Total Protein 5.9 L Discharge - Discharge Clinical Impression: Nasal congestion, Cough Condition: Good Disposition: HOME, SELF-CARE Additional Instructions: Please come back immediately with any worsening cough, fevers, vomiting, leg swelling, pain, worsening shortness of breath, or any other acute problems. Please take 2 puffs of the albuterol inhaler every 4-6 hours as needed for the next 48 hours. Please make sure that she follow-up with your primary care physician as we have discussed and have help to expedite. Referrals: NOAM JIMENEZ MD [ACTIVE STAFF] - Follow up as needed
[2017-11-05 16:14] LABS: ABSOLUTE EOSINOPHILS # (AUTO) 0.1 10^3/uL (0.0-0.6); ABSOLUTE LYMPHOCYTES (AUTO) 0.4 10^3/uL (0.5-4.7); ABSOLUTE MONOCYTES (AUTO) 0.4 10^3/uL (0.1-1.4); BASOPHILS % (AUTO) 0.2 % (0-2); EOSINOPHILS % (AUTO) 1.3 % (0-6); HEMATOCRIT 28.4 % (36.0-47.0); HEMOGLOBIN 9.4 g/dL (12.0-15.5); HGB HCT DIFFERENCE -0.2; LYMPHOCYTES % (AUTO) 7.5 % (13-45); MEAN CORPUSCULAR HEMOGLOBIN 34.6 pg (27.0-33.4); MEAN CORPUSCULAR HGB CONC 33.2 g/dL (32.0-36.0); MEAN CORPUSCULAR VOLUME 104 fl (80-97); MONOCYTES % (AUTO) 7.2 % (3-13); RED BLOOD COUNT 2.73 10^6/uL (3.72-5.28); RED CELL DISTRIBUTION WIDTH 16.7 % (11.5-14.0); SEGMENTED NEUTROPHILS % (AUTO) 83.8 % (42-78); WHITE BLOOD COUNT 5.9 10^3/uL (4.0-10.5)
[2017-11-05 16:20] LABS: PROTHROMBIN TIME 14.3 SEC (11.4-15.4)
[2017-11-05 16:32] LABS: ALANINE AMINOTRANSFERASE 38 U/L (9-52); ALBUMIN 3.9 g/dL (3.5-5.0); ALKALINE PHOSPHATASE 153 U/L (38-126); ANION GAP 14 (5-19); ASPARTATE AMINO TRANSFERASE 21 U/L (14-36); BILIRUBIN,DIRECT 0.6 mg/dL (0.0-0.4); BILIRUBIN,TOTAL 0.8 mg/dL (0.2-1.3); BLOOD UREA NITROGEN 21 mg/dL (7-20); CARBON DIOXIDE 27 mmol/L (22-30); CHLORIDE 98 mmol/L (98-107); CREATININE RESULT 4.17 mg/dL (0.52-1.25); GLUCOSE 101 mg/dL (75-110); POTASSIUM 3.6 mmol/L (3.6-5.0); SODIUM 139.1 mmol/L (137-145); TOTAL PROTEIN 5.9 g/dL (6.3-8.2)
[2017-11-05] MEDS ORDERED: ALBUTEROL SULFATE HFA (90 MCG/PUFF) 8 GM MDI (1 MDI/ER DISP) IH PRN (17:38)
[2017-11-05] MEDS ORDERED: ACETAMINOPHEN 325 MG TABLET PO ONE (18:33)
[2017-11-05 18:34] VITALS: BP 136/81
[2017-11-05] MEDS ORDERED: DOXYCYCLINE HYCLATE 100 MG TABLET PO ONE (18:45)
== END 2017-11-05 19:19 | disposition home or self-care (01) ==
LOC: ER 12:33
DX: R09.81 Nasal congestion (principal); R05 Cough; R50.9 Fever, unspecified; I12.0 Hypertensive chronic kidney disease with stage 5 chronic kidney disease or end stage renal disease; N18.6 End stage renal disease; Z99.2 Dependence on renal dialysis; C90.00 Multiple myeloma not having achieved remission; Z94.84 Stem cells transplant status; Z88.3 Allergy status to other anti-infective agents; Z88.6 Allergy status to analgesic agent; Z88.0 Allergy status to penicillin; Z87.891 Personal history of nicotine dependence; Z98.84 Bariatric surgery status
CPT/HCPCS: 93005; 36591; 94640; 99284; 36415; 87040; 85025; 85610; 80053; 83605; 87804; 71020; 93010; J3490 ×2; J7620

== ENCOUNTER → 2018-01-01 | Day surgery (SDC) | payer OTHER, MEDICARE ==
[~2018-01-01] MED LIST changes: -BACITRACIN INJ 50,000 UNIT VIAL MC ONE; -BACITRACIN INJ 50,000 UNIT VIAL MC PRN; +DIAZEPAM 5 MG TABLET PO PRN; +OXYCODONE-ACETAMINOPHEN 5-325 MG TABLET PO PRN; -VANCOMYCIN HCL 500 MG in DEXTROSE 5%-WATER 100 ML IV PRN
[2018-01-01 10:32] VITALS: BP 101/57
== END ==
LOC: CCL 09:39
PROVIDERS: ATTEND Surgery
DX: R69 Illness, unspecified (principal)

== ENCOUNTER 2018-01-03 05:59 | Day surgery (SDC) | payer OTHER, MEDICARE ==
[2018-01-03] MEDS ORDERED: OXYCODONE-ACETAMINOPHEN 5-325 MG TABLET ONE (06:05)
[2018-01-03] MEDS ORDERED: DIAZEPAM 5 MG TABLET ONE (06:06)
[2018-01-03 06:36] LABS: ABSOLUTE EOSINOPHILS # (AUTO) 0.3 10^3/uL (0.0-0.6); ABSOLUTE LYMPHOCYTES (AUTO) 1.8 10^3/uL (0.5-4.7); ABSOLUTE MONOCYTES (AUTO) 0.6 10^3/uL (0.1-1.4); ABSOLUTE NEUT (AUTO) 6.4 10^3/uL (1.7-8.2); BASOPHILS % (AUTO) 0.4 % (0-2); EOSINOPHILS % (AUTO) 3.2 % (0-6); HEMATOCRIT 34.5 % (36.0-47.0); HEMOGLOBIN 11.5 g/dL (12.0-15.5); LYMPHOCYTES % (AUTO) 19.3 % (13-45); MEAN CORPUSCULAR HEMOGLOBIN 35.6 pg (27.0-33.4); MEAN CORPUSCULAR HGB CONC 33.2 g/dL (32.0-36.0); MEAN CORPUSCULAR VOLUME 107 fl (80-97); MONOCYTES % (AUTO) 7.1 % (3-13); PLATELET COUNT 151 10^3/uL (150-450); RED BLOOD COUNT 3.22 10^6/uL (3.72-5.28); RED CELL DISTRIBUTION WIDTH 16.7 % (11.5-14.0); TOTAL CELLS COUNTED % (AUTO) 100 %; WHITE BLOOD COUNT 9.2 10^3/uL (4.0-10.5)
[2018-01-03 06:56] LABS: ANION GAP 16 (5-19); BLOOD UREA NITROGEN 37 mg/dL (7-20); CALCIUM 10.2 mg/dL (8.4-10.2); CARBON DIOXIDE 27 mmol/L (22-30); CHLORIDE 97 mmol/L (98-107); GLUCOSE 115 mg/dL (75-110); POTASSIUM 4.1 mmol/L (3.6-5.0); SODIUM 139.5 mmol/L (137-145)
[2018-01-03] MEDS ORDERED: MIDAZOLAM 2 MG/2 ML INJ ONE (07:25)
[2018-01-03] MEDS ORDERED: LIDOCAINE 0.5% INJ-PF (5 MG/ML) 50 ML SDV ONE (07:25)
[2018-01-03] MEDS ORDERED: FENTANYL CITRATE INJ/PF 100 MCG/2 ML AMPUL ONE (07:26)
[2018-01-03] MEDS ORDERED: HEPARIN SOD (PORCINE) 5,000 UNIT/ML 1 ML SYRINGE ONE (07:26)
--- NOTE | 2018-01-03 10:24 | PDOC H&P ---
General Chief Complaint: This patient was admitted for angioplasty angiogram and possible angioplasty and her malfunctioning AV fistula left transposed basilic stented. - Current Medications/Allergies Home Medications: Allopurinol [Zyloprim 100 mg Tablet] 100 mg PO BID 11/22/16 Aripiprazole [Abilify 5 mg Tablet] 5 mg PO DAILY 11/22/16 Aspirin [Aspirin 81 mg Chewable Tablet] 81 mg PO Q2D@1000 11/22/16 Bacillus Coagulans [Probiotic] 2 tab PO DAILY 11/22/16 Calcium Acetate [Phoslo 667 mg Capsule] 2,001 mg PO MEALS 11/22/16 Calcium Carbonate/Vitamin D3 [Calcium 500-Vit D3 200 Caplet] 1 tab PO BID Dexlansoprazole [Dexilant 30 mg Capsule] 30 mg PO DAILY 11/22/16 Duloxetine HCl [Cymbalta] 60 mg PO BID 11/22/16 Isosorbide Mononitrate [Isosorbide Mononitrate ER] 60 mg PO DAILY 11/22/16 Lorazepam 1 - 3 mg PO HSP PRN 11/22/16 Nitroglycerin [Nitrostat] 0.4 mg SL PRN PRN 11/22/16 Ondansetron HCl [Zofran 8 mg Tablet] 8 mg PO Q6HP PRN 11/22/16 Sertraline HCl [Zoloft] 100 mg PO DAILY 11/22/16 Topiramate [Topamax 100 mg Tablet] 100 mg PO QHS 11/22/16 Dronabinol [Marinol] 2.5 mg PO DAILY 09/10/17 Acyclovir [Zovirax 200 mg Capsule] 200 mg PO BID 09/13/17 Rosuvastatin Calcium [Crestor 5 mg Tablet] 10 mg PO QHS 09/13/17 Folic Acid/Vit B Complex and C [Dialyvite 800 Tablet] 1 tab PO DAILY 11/05/17 Metoprolol Tartrate [Lopressor 100 mg Tablet] 1 tab PO BID 11/05/17 Allergies/Adverse Reactions: adhesive [Adhesive] Allergy (Severe, Verified 01/02/18 11:55) tears skin codeine [Codeine] Allergy (Severe, Verified 01/02/18 11:55) "crazy" erythromycin base [Erythromycin Base] Allergy (Intermediate, Verified 01/02/18 11:55) Anaphylaxis Penicillins Allergy (Mild, Verified 01/02/18 11:55) Hives levofloxacin [From Levaquin] Adverse Reaction (Severe, Verified 01/02/18 11:55) Swelling of tongue Past Medical History Cardiac Medical History: Reports: Myocardial Infarction - POSSIBLE [place] IN 2014 - Heart cath "Everything looked great", Hypertension - ON MEDICATION, Peripheral Vascular Disease Denies: Coronary Artery Disease Pulmonary Medical History: Reports: Bronchitis, Pneumonia - HX. OF OCTOBER 2017 , Sleep Apnea - On CPap Denies: Asthma, Chronic Obstructive Pulmonary Disease (COPD) Neurological Medical History: Denies: Seizures Renal/ Medical History: Reports: End Stage Renal Disease Musculoskeltal Medical History: Reports: Arthritis - ALL OVER Psychiatric Medical History: Reports: Depression Hematology: Reports: Anemia Past Surgical History Past Surgical History: Reports: Gastric Bypass Surgery, Orthopedic Surgery - Right TKA, left rotator cuff, Tonsillectomy, Vascular Surgery - Left arm fistula , Other - Stem cell transplant, bone marrow biopsy, Port-A-Cath Denies: Hysterectomy, Pacemaker Family History Family History: CAD - Father, Other - Clotting disorder-father Parental Family History Reviewed: No Children Family History Reviewed: No Sibling(s) Family History Reviewed.: No Social History Smoking Status: Former Smoker Frequency of Alcohol Use: Social Hx Recreational Drug Use: No Drugs: None Hx Prescription Drug Abuse: No Physical Exam Vital Signs: Temp Pulse Resp BP Pulse Ox 97.8 F 73 18 101/67 100 01/03/18 07:35 01/03/18 07:35 01/03/18 07:35 01/03/18 07:35 01/03/18 07:35 Intake & Output 01/02/18 01/03/18 01/04/18 06:59 06:59 06:59 Weight 64.41 kg Additional comments: Constitutional: Well-developed well-nourished lady, moderately increased body mass in. No apparent acute distress. Eyes: Mucous membranes pink and moist, pupils equal and reactive to light. Conjunctiva normal. Cornea normal. Wears spectacles. ENT: Hearing grossly normal. External pinna normal to inspection. Teeth intact. Tongue normal to inspection. Cardiac: Heart sounds 1 and 2 normal. Respiratory breath sounds are present bilaterally, normal. Normal respiratory effort. Psychiatric: Judgment, memory, insight seem normal. Mood is pleasant and appropriate. Extremities: Upper extremities show normal range of movement. Pulses present noted to the radial arteries. Capillary refill normal. No cyanosis noted. No muscle wasting noted. Left arm transposed fistula with firmness suggesting stent. Normal bruit. Impression/Plan Plan: In this patient with a very kristin left transposed fistula and a same sided port, intervention is indicated to keep the critical lifelines open. The risks , benefits, expected outcome and alternatives are familiar to the patient and she wishes to proceed.
--- NOTE | 2018-01-03 10:26 | PDOC DISCHARGE SUMMARY ---
Discharge Summary (SDC) - Discharge Final Diagnosis: #1 left arm transposed fistula malfunction. 2. End-stage renal disease on hemodialysis. 3. Multiple myeloma. 4. Hypertension. Date of Surgery: 01/03/18 Discharge Date: 01/03/18 Condition: Good Treatment or Instructions: Discharge home [after recovery per ASU criteria]. Diet , [renal],as tolerated, when fully awake advance as tolerated. Activities within moderation encouraged. Follow up in my office by appointment in about 1 month. Call for appointment. Leave wounds [covered], [keep clean and dry, until hemodialysis]. Hold of on school/work [until evaluation in office]. Meds per med rec. May shower [in 48 hrs], [try to keep operated area as dry as possible]. Referrals: JUVENCIO HALL JR, MD [Primary Care Provider] -
--- NOTE | 2018-01-03 10:40 | Operative Report ---
Operative Report DATE OF SURGERY: 01/03/18 PREOPERATIVE DIAGNOSIS: #1 left arm transposed fistula malfunction. 2. End- stage renal disease on hemodialysis. 3. Multiple myeloma. 4. Hypertension. POSTOPERATIVE DIAGNOSIS: #1 left arm transposed fistula malfunction. Post angioplasty. 2. End-stage renal disease on hemodialysis. 3. Multiple myeloma. 4. Hypertension. OPERATION: 1. Needle access into fistula. 2. Central angioplasty. 3. Drug- eluting balloon treatment in central stenosis. 4. Angioplasty peripherally in fistula and stent. 5. Angiogram and interpretation. SURGEON: MARK VELARDE FINANCIAL REP: None ANESTHESIA: Moderate Sedation TISSUE REMOVED OR ALTERED: Not applicable. COMPLICATIONS: None. ESTIMATED BLOOD LOSS: 5 mL. INTRAOPERATIVE FINDINGS: Of a functioning transposed fistula in the left arm. Normal bruit. Slightly firm. Angiographic findings are of a stent probably 7 or 8 mm stent in the transposed fistula some irregularity with in-stent stenosis. Also immediately cephalad to the introducer, at about 6 centimeters from the anastomosis a 30% stenosis appreciated. 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 The central stenosis requiring quite a bit of manipulation in order to get through and to angioplasty. Complex manipulation was done in order to get through the area of stenosis and into the superior vena cava. Fortunately this proved possible and after verification a 4 mm angioplasty balloon opened channel beside the Port-A-Cath. Angioplasty of the innominate brought the innominate up to an estimated 8 mm, rebounding from a 9 mm balloon. 9 mm drug-eluting balloons were now used to cover the innominate, area of stenosis. The outcome seems satisfactory with about a 7-8 mm channel. In addition the collateral flow to the internal jugular ceased. This attests to the hemodynamic success of the procedure. Angioplasty was now done in the stent and also the area of stenosis adjacent to the introducer with considerable improvement. In this patient whose Port-A- Cath and fistula are kristin, as there is little alternative given her multiple comorbidities and given her high function, relatively frequent interventions will be needed. The hope would be to re-angioplasty in about 2 months if not before and consider dilating up possibly to 10 or 12 mm. PROCEDURE: PROCEDURE: After verifying the procedure and having obtained informed consent, the patient's left arm was prepared with Chlorhexidine and draped out with sterile linen. Local anesthesia infiltrated. Percutaneous access into the fistula ,[ antegrade], obtained about [4 cm] from the arteriovenous anastomosis using a micro puncture needle followed by micro puncture wire and then a micro puncture catheter. Angiogram demonstrated the aforementioned findings. Angioplasty was elected. A 0.035 Nunda wire was inserted. Followed by a 6 and then a 7 Chinese introducer. Considerable manipulation was done in order to get into the superior vena cava. This required use of a Kumpe catheter and a Garcia catheter with directed manipulation of 0.018 floppy wire and the 0.35 Glidewire through the area of stenosis and beside the Port-A- Cath. This was quite challenging but, thankfully successful.. Angioplasty was done from the right atrium up to the junction of the Port-A-Cath with the subclavian. Angiogram demonstrated patency after this 4 mm angioplasty dilatation. This allowed introduction of a 7 mm conquest balloon which was used to serial serially angioplasty of the affected segment. This was now followed by a 9 mm Hardtner balloon which was used to serially dilate the area from the right atrium of the subclavian using a insufflator and inflating up to 16 aydin for 2 minutes at a time. The catheter was withdrawn and angiogram demonstrated a satisfactory result. A 9 mm drug-eluting balloon, Lutonix brand was now inserted and medication applied for 3 minutes at burst pressure of 11 aydin across the entire length of the innominate stenosis. This required 3 balloons. The balloon was withdrawn and angiogram demonstrated satisfactory outcome with relatively minor rebound. The balloon was used to inflate within the stent graft and also the area of stenosis adjacent to the introducer. These were done using hand injection. Completion angiogram was satisfactory and the results accepted. The instrumentation was now withdrawn over hand pressure for 10 minutes Gennaro Luu once the numbers for that Gomez 48 thank you. Dressings applied, procedure concluded. Exposure time: 7.8 minutes Radiation: 48.5 Yumiko murguia. Contrast: 50 mL of Isovue-300, low osmolality. DICTATING PHYSICIAN: MARK SZYMANSKI M.D. cc: MARK SZYMANSKI M.D. ([id number]) >>
[2018-01-03 13:07] VITALS: BP 106/67
--- NOTE | 2018-01-07 11:06 | RADIOLOGY REPORT (SQ) ---
EXAM DESCRIPTION: FISTULAGRAM W/PLASTY; ANGIOPLASTY BRACHIOCEPHALIC COMPLETED DATE/TIME: 01/07/2018 8:42 am REASON FOR STUDY: T82.858A T82.858A STENOSIS OF OTHER VASCULAR PROSTH DEV/GRFT, INIT COMPARISON: None. FLUOROSCOPY TIME: 7.8 minutes. 72 images saved to PACS. TECHNIQUE: Intra-operative images acquired during surgical procedure to evaluate progress. NUMBER OF IMAGES: 72 LIMITATIONS: None. FINDINGS: Imaging in fluoroscopy during left upper extremity evaluation and plasty by Dr. Smith . Please refer to the operative report for further details. IMPRESSION: INTRA PROCEDURAL IMAGING ABOVE . COMMENT: Quality ID 145: Final reports for procedures using fluoroscopy that document radiation exp osure indices, or exposure time and number of fluorographic images (if radiation exposure indices are not available) Please consult full operative report of the attending physician for description of the procedure. TECHNICAL DOCUMENTATION: JOB ID: [id number] [employer]- All Rights Reserved
== END 2018-01-03 11:30 | disposition home or self-care (01) ==
LOC: CCL 05:59
PROVIDERS: ATTEND Surgery
DX: T82.858A Stenosis of other vascular prosthetic devices, implants and grafts, initial encounter (principal); Y83.2 Surgical operation with anastomosis, bypass or graft as the cause of abnormal reaction of the patient, or of later complication, without mention of misadventure at the time of the procedure; I12.0 Hypertensive chronic kidney disease with stage 5 chronic kidney disease or end stage renal disease; N18.6 End stage renal disease; Z99.2 Dependence on renal dialysis; Z79.899 Other long term (current) drug therapy; Z79.82 Long term (current) use of aspirin; Z88.5 Allergy status to narcotic agent; I25.2 Old myocardial infarction; I73.9 Peripheral vascular disease, unspecified; G47.30 Sleep apnea, unspecified; M19.90 Unspecified osteoarthritis, unspecified site; D63.1 Anemia in chronic kidney disease; Z87.891 Personal history of nicotine dependence; Z88.0 Allergy status to penicillin; Z88.1 Allergy status to other antibiotic agents; C90.00 Multiple myeloma not having achieved remission; Z98.84 Bariatric surgery status; Z96.651 Presence of right artificial knee joint
CPT/HCPCS: 36415; 85025; 80048; 36907; 36902; C1752; Q9967; C1769; J1644 ×2; J3490; J2250; J3010

== ENCOUNTER 2018-04-02 11:10 | Day surgery (SDC) | payer MEDICARE, OTHER ==
[~2018-04-02 11:10] MED LIST changes: -OXYCODONE-ACETAMINOPHEN 5-325 MG TABLET PO PRN
[2018-04-02] MEDS ORDERED: LIDOCAINE 0.5% INJ-PF (5 MG/ML) 50 ML SDV ONE (11:49)
[2018-04-02] MEDS ORDERED: MIDAZOLAM 2 MG/2 ML INJ ONE (11:51)
[2018-04-02] MEDS ORDERED: HEPARIN SOD (PORCINE) 5,000 UNIT/ML 1 ML SYRINGE ONE (11:51)
[2018-04-02] MEDS ORDERED: FENTANYL CITRATE INJ/PF 100 MCG/2 ML AMPUL ONE (11:51)
[2018-04-02 12:04] LABS: HEMATOCRIT 31.7 % (36.0-47.0); HEMOGLOBIN 10.6 g/dL (12.0-15.5); MEAN CORPUSCULAR HEMOGLOBIN 37.7 pg (27.0-33.4); MEAN CORPUSCULAR HGB CONC 33.5 g/dL (32.0-36.0); PLATELET COUNT 137 10^3/uL (150-450); RED BLOOD COUNT 2.81 10^6/uL (3.72-5.28); RED CELL DISTRIBUTION WIDTH 15.3 % (11.5-14.0); WHITE BLOOD COUNT 5.7 10^3/uL (4.0-10.5)
[2018-04-02 12:13] LABS: MEAN CORPUSCULAR VOLUME 113 fl (80-97)
[2018-04-02 12:33] LABS: ANION GAP 14 (5-19); BLOOD UREA NITROGEN 44 mg/dL (7-20); CALCIUM 8.8 mg/dL (8.4-10.2); CARBON DIOXIDE 29 mmol/L (22-30); CHLORIDE 100 mmol/L (98-107); GLUCOSE 92 mg/dL (75-110); POTASSIUM 4.4 mmol/L (3.6-5.0); SODIUM 143.1 mmol/L (137-145)
--- NOTE | 2018-04-02 13:55 | RADIOLOGY REPORT (SQ) ---
EXAM DESCRIPTION: FISTULAGRAM W/PLASTY COMPLETED DATE/TIME: 04/02/2018 1:27 pm REASON FOR STUDY: T82.858A T82.858A STENOSIS OF OTHER VASCULAR PROSTH DEV/GRFT, INIT COMPARISON: None. FLUOROSCOPY TIME: 1.3 minutes 61 images saved to PACS. TECHNIQUE: Intra-operative images acquired during surgical procedure to evaluate progress. NUMBER OF IMAGES: 61 LIMITATIONS: None. FINDINGS: Selected images from angiography and balloon angioplasty left upper extremity dialysis gra ft. IMPRESSION: IMAGE(S) OBTAINED DURING PROCEDURE. COMMENT: Quality ID 145: Final reports for procedures using fluoroscopy that document radiation exp osure indices, or exposure time and number of fluorographic images (if radiation exposure indices are not available) Please consult full operative report of the attending physician for description of the procedure. TECHNICAL DOCUMENTATION: JOB ID: [id number] [employer]- All Rights Reserved Reading location - IP/workstation name: [email or web address]
[2018-04-02] MEDS ORDERED: OXYCODONE-ACETAMINOPHEN 5-325 MG TABLET ONE (13:56)
--- NOTE | 2018-04-02 13:56 | Discharge Summary ---
Discharge Summary (SDC) - Discharge Final Diagnosis: #1 malfunctioning AV fistula left arm brachiocephalic. 2. Multiple myeloma. 3. Hypertension. Date of Surgery: 04/02/18 Discharge Date: 04/02/18 Condition: Good Treatment or Instructions: Discharge home [after recovery per ASU criteria]. Diet , [renal],as tolerated, when fully awake advance as tolerated. Activities within moderation encouraged. Follow up in my office by appointment in about [1 week]. Call for appointment. Leave wounds [covered], [keep clean and dry, until office visit in 1 week]. Hold of on school/work [until evaluation in office]. Meds per med rec. May shower [in 48 hrs], [try to keep operated area as dry as possible]. Referrals: JUVENCIO HALL JR, MD [Primary Care Provider] - Discharge Diet: Other (Comments) - Renal. Respiratory Treatments at Home: Deep Breathing/Coughing Discharge Activity: Activity As Tolerated Report the Following to Your Physician Immediately: Shortness of Breath, Unusual Bleeding
--- NOTE | 2018-04-02 14:01 | Operative Report ---
Operative Report DATE OF SURGERY: 04/02/18 PREOPERATIVE DIAGNOSIS: #1 malfunctioning AV fistula left arm brachiocephalic. 2. Multiple myeloma. 3. Hypertension. POSTOPERATIVE DIAGNOSIS: #1 malfunctioning AV fistula left arm brachiocephalic. 2. Multiple myeloma. 3. Hypertension. OPERATION: 1. Needle access into fistula. 2. Central venous stenosis angioplasty. 3. Angiogram and interpretation. SURGEON: MARK VELARDE PRINCIPAL ACCOUNT CLERK: None. ANESTHESIA: Moderate Sedation TISSUE REMOVED OR ALTERED: Not applicable. COMPLICATIONS: None. ESTIMATED BLOOD LOSS: 5 mL. INTRAOPERATIVE FINDINGS: Of a somewhat firm fistula consistent with cephalad stenosis. Stenosis estimated to be about 80% of the adjacent lumen noted for about 6 cm around the left innominate vein. After angioplasty improvement in flow and some improvement in angiographic findings. The findings are accepted we will plan for angioplasty with a larger balloon possibly a 12 mm within the next 3 months. The patient experienced mild neck discomfort during angioplasty. PROCEDURE: PROCEDURE: After verifying the procedure and having obtained informed consent, the patient's left arm was prepared with Chlorhexidine and draped out with sterile linen. Local anesthesia infiltrated. Percutaneous access into the fistula ,[ antegrade], obtained about [2 cm] from the arteriovenous anastomosis using a micro puncture needle followed by micro puncture wire and then a micro puncture catheter. Angiogram demonstrated the aforementioned findings. Angioplasty was elected. A 0.035 Harper wire was inserted, and over this, a 7 Trinidadian short introducer was placed, this was followed by a [9-mm ] angioplasty balloon . Angioplasty was Done using a 3 mils syringe for 2 minutes. 2 inflation cycles or sufficient to completely cover the relevant area. Angiogram demonstrated residual stenosis. A 10 mm x 4 cm long angioplasty balloon was now inserted and inflated repeatedly using a 3 mils syringe. Each inflation for 3 minutes. A total of 4 insufflator sounds were sufficient. Completion angiogram demonstrated an acceptable result. The instrumentation was now withdrawn over hand pressure for 10 minutes. Dressings applied. Exposure time: 1.3 minutes Radiation: 10.7 Yumiko murguia Contrast: 25 mL of Isovue-300, low osmolality. DICTATING PHYSICIAN: MARK SZYMANSKI M.D. cc: MARK SZYMANSKI M.D. ([id number]) >>
--- NOTE | 2018-04-02 14:38 | RADIOLOGY REPORT (SQ) ---
EXAM DESCRIPTION: ANGIOPLASTY BRACHIOCEPHALIC COMPLETE DATE/TIME: 04/02/2018 1:27 pm REASON FOR STUDY: T82.858A T82.858A STENOSIS OF OTHER VASCULAR PROSTH DEV/GRFT, INIT FINDINGS: Please see combined report for performance of procedure and radiologic supervision and int erpretation. IMPRESSION: Please see combined report for performance of procedure and radiologic supervision and i nterpretation. Reading location - IP/workstation name: [email or web address]
[2018-04-02 15:13] VITALS: BP 111/70
[2018-04-03 09:51] LABS: PATH REVIEW PATHOLOGIST REVIEWED
== END 2018-04-02 15:05 | disposition home or self-care (01) ==
LOC: CCL 11:10
PROVIDERS: ATTEND Surgery
DX: T82.858A Stenosis of other vascular prosthetic devices, implants and grafts, initial encounter (principal); Y83.2 Surgical operation with anastomosis, bypass or graft as the cause of abnormal reaction of the patient, or of later complication, without mention of misadventure at the time of the procedure; I12.0 Hypertensive chronic kidney disease with stage 5 chronic kidney disease or end stage renal disease; N18.6 End stage renal disease; S31.109A Unspecified open wound of abdominal wall, unspecified quadrant without penetration into peritoneal cavity, initial encounter; X58.XXXA Exposure to other specified factors, initial encounter; C90.00 Multiple myeloma not having achieved remission; L03.119 Cellulitis of unspecified part of limb; Z01.818 Encounter for other preprocedural examination; Z88.0 Allergy status to penicillin; Z88.1 Allergy status to other antibiotic agents; Z79.899 Other long term (current) drug therapy; Z79.891 Long term (current) use of opiate analgesic; Z79.82 Long term (current) use of aspirin
CPT/HCPCS: 36415; 85027; 80048; 36907; 36902; C1725; C1752; C1894; Q9967; J2250; J1644 ×2; A9270 ×2; J3010; J3490; C1769

== ENCOUNTER 2018-04-25 08:57 | Day surgery (SDC) | payer MEDICARE, OTHER ==
[~2018-04-25 08:57] MED LIST changes: +OXYCODONE-ACETAMINOPHEN 5-325 MG TABLET PO PRN
[2018-04-25] MEDS ORDERED: LIDOCAINE 0.5% INJ-PF (5 MG/ML) 50 ML SDV ONE (10:07)
[2018-04-25] MEDS ORDERED: HEPARIN SOD (PORCINE) 5,000 UNIT/ML 1 ML SYRINGE ONE (10:25)
[2018-04-25] MEDS ORDERED: MIDAZOLAM 2 MG/2 ML INJ ONE (10:25)
[2018-04-25] MEDS ORDERED: FENTANYL CITRATE INJ/PF 100 MCG/2 ML AMPUL ONE (10:25)
[2018-04-25 10:35] LABS: HEMATOCRIT 30.6 % (36.0-47.0); HEMOGLOBIN 10.4 g/dL (12.0-15.5); MEAN CORPUSCULAR HEMOGLOBIN 37.5 pg (27.0-33.4); MEAN CORPUSCULAR HGB CONC 33.9 g/dL (32.0-36.0); MEAN CORPUSCULAR VOLUME 111 fl (80-97); PLATELET COUNT 109 10^3/uL (150-450); RED BLOOD COUNT 2.77 10^6/uL (3.72-5.28); RED CELL DISTRIBUTION WIDTH 14.4 % (11.5-14.0); WHITE BLOOD COUNT 5.2 10^3/uL (4.0-10.5)
[2018-04-25 11:20] LABS: ANION GAP 16 (5-19); BLOOD UREA NITROGEN 49 mg/dL (7-20); CALCIUM 8.3 mg/dL (8.4-10.2); CARBON DIOXIDE 24 mmol/L (22-30); CHLORIDE 101 mmol/L (98-107); GLUCOSE 85 mg/dL (75-110); POTASSIUM 4.7 mmol/L (3.6-5.0); SODIUM 140.7 mmol/L (137-145)
[2018-04-25] MEDS ORDERED: ONDANSETRON HCL INJ/PF 4 MG/2 ML SDV ONE (11:57)
--- NOTE | 2018-04-25 12:11 | Discharge Summary ---
Discharge Summary (SDC) - Discharge Final Diagnosis: #1 AV fistula malfunction, left arm brachiocephalic. 2. End-stage renal disease on hemodialysis. 3. Multiple myeloma. 4. Hypertension. Date of Surgery: 04/25/18 Discharge Date: 04/25/18 Condition: Good Treatment or Instructions: Discharge home [after recovery per ASU criteria]. Diet , [renal],as tolerated, when fully awake advance as tolerated. Activities within moderation encouraged. Follow up in my office by appointment in about [1 week. Leave wounds [covered], [keep clean and dry, until hemodialysis]. Hold of on school/work [until evaluation in office]. Meds per med rec. Few Percocet. May shower [in 48 hrs], [try to keep operated area as dry as possible]. Prescriptions: Oxycodone HCl/Acetaminophen [Percocet 5-325 mg Tablet] 1 tab PO ASDIR PRN #5 tab PRN Reason: Referrals: FRANCINE LIMA PA-C [Primary Care Provider] - Discharge Diet: Other (Comments) - Renal. Respiratory Treatments at Home: Deep Breathing/Coughing Discharge Activity: Activity As Tolerated Report the Following to Your Physician Immediately: Shortness of Breath, Unusual Bleeding
--- NOTE | 2018-04-25 12:15 | Operative Report ---
Operative Report DATE OF SURGERY: 04/25/18 PREOPERATIVE DIAGNOSIS: #1 AV fistula malfunction, left arm brachiocephalic. 2. End-stage renal disease on hemodialysis. 3. Multiple myeloma. 4. Hypertension. POSTOPERATIVE DIAGNOSIS: #1 AV fistula malfunction, left arm brachiocephalic. 2. End-stage renal disease on hemodialysis. 3. Multiple myeloma. 4. Hypertension. OPERATION: 1. Needle access into fistula. 2. Central venous angioplasty. 3. Drug-eluting balloon angioplasty of central venous lesion. 4. Angiogram and interpretation SURGEON: MARK VELARDE TANK WASHER: None. ANESTHESIA: Moderate Sedation TISSUE REMOVED OR ALTERED: Not applicable. COMPLICATIONS: None. ESTIMATED BLOOD LOSS: 5 mL. INTRAOPERATIVE FINDINGS: Of a well founded left arm brachiocephalic fistula. Stenosis noted in the left innominate vein estimated 80% of the adjacent lumen. Corrected with dilatation up to 12 mm angioplasty balloon. Hope is for sustenance of results for a prolonged period of time. PROCEDURE: PROCEDURE: After verifying the procedure and having obtained informed consent, the patient's left arm was prepared with Chlorhexidine and draped out with sterile linen. Local anesthesia infiltrated. Percutaneous access into the fistula ,[ antegrade], obtained about 4 cm] from the arteriovenous anastomosis using a micro puncture needle followed by micro puncture wire and then a micro puncture catheter. Angiogram demonstrated the aforementioned findings. Angioplasty was elected. A 0.035 Holder wire was inserted, and over this, a 8 Uruguayan short introducer was placed, this was followed by a [10-mm ] angioplasty balloon . Angioplasty was In the culprit area of the left innominate vein. Inflating up to 16 atmospheres for 2 minutes at a time.]. Completion angiogram demonstrated [satisfactory result]. In light of the recurrence of this area a 12 mm Leutonixs balloon was now inserted and inflated per brick tester's instructions in the culprit area. Completion angiogram was satisfactory the instrumentation was now withdrawn over a short piece of catheter and a 5-0 Prolene suture. Dressings applied, procedure concluded. Exposure time: 2.6 minutes. Radiation: 24.27 Yumiko murguia. Contrast: 25 mils of Isovue-300, low osmolality. DICTATING PHYSICIAN: MARK SZYMANSKI M.D. cc: MARK SZYMANSKI M.D. ([id number]) >>
[2018-04-25] MEDS ORDERED: OXYCODONE-ACETAMINOPHEN 5-325 MG TABLET ONE (12:43)
[2018-04-25 13:56] VITALS: BP 110/68
--- NOTE | 2018-04-25 16:39 | RADIOLOGY REPORT (SQ) ---
EXAM DESCRIPTION: FISTULAGRAM W/PLASTY COMPLETED DATE/TIME: 04/25/2018 11:59 am REASON FOR STUDY: T82.858A T82.858A STENOSIS OF OTHER VASCULAR PROSTH DEV/GRFT, INIT COMPARISON: 04/02/2018 FLUOROSCOPY TIME: 2.6 minutes 101 digital radiographic images saved to PACS. TECHNIQUE: Intra-operative images acquired during surgical procedure to evaluate progress. NUMBER OF IMAGES: 101 digital radiographic images LIMITATIONS: None. FINDINGS: Intra procedural imaging and fluoro during evaluation and plasty of left upper extremity d ialysis access by Dr. Smith. Please see the operative report for further details. IMPRESSION: Intra procedural imaging and fluoro COMMENT: Quality ID 145: Final reports for procedures using fluoroscopy that document radiation exp osure indices, or exposure time and number of fluorographic images (if radiation exposure indices are not available) Please consult full operative report of the attending physician for description of the procedure. TECHNICAL DOCUMENTATION: JOB ID: [id number] [employer]- All Rights Reserved Reading location - IP/workstation name: [email or web address]
== END 2018-04-25 14:00 | disposition home or self-care (01) ==
LOC: CCL 08:57
PROVIDERS: ATTEND Surgery
DX: Z01.818 Encounter for other preprocedural examination (principal); T82.858A Stenosis of other vascular prosthetic devices, implants and grafts, initial encounter; Y83.2 Surgical operation with anastomosis, bypass or graft as the cause of abnormal reaction of the patient, or of later complication, without mention of misadventure at the time of the procedure; I12.0 Hypertensive chronic kidney disease with stage 5 chronic kidney disease or end stage renal disease; N18.6 End stage renal disease; Z99.2 Dependence on renal dialysis; C90.00 Multiple myeloma not having achieved remission; L03.119 Cellulitis of unspecified part of limb; F43.29 Adjustment disorder with other symptoms; Z88.0 Allergy status to penicillin; Z88.1 Allergy status to other antibiotic agents; Z79.899 Other long term (current) drug therapy; Z79.82 Long term (current) use of aspirin; Z79.891 Long term (current) use of opiate analgesic
CPT/HCPCS: 36415; 85027; 80048; 36907; 36902; C1725; C1752; Q9967; C1769; J2250; J1644 ×2; A9270 ×2; J3010; J3490; J2405; C1894

== ENCOUNTER 2018-05-06 06:54 | Day surgery (SDC) | payer MEDICARE, OTHER ==
[2018-05-06] MEDS ORDERED: LIDOCAINE 0.5% INJ-PF (5 MG/ML) 50 ML SDV ONE (07:47)
[2018-05-06] MEDS ORDERED: OXYCODONE-ACETAMINOPHEN 5-325 MG TABLET ONE (07:47)
[2018-05-06] MEDS ORDERED: DIAZEPAM 5 MG TABLET ONE (07:47)
[2018-05-06 08:08] LABS: HEMATOCRIT 29.5 % (36.0-47.0); HEMOGLOBIN 9.9 g/dL (12.0-15.5); MEAN CORPUSCULAR HEMOGLOBIN 37.3 pg (27.0-33.4); MEAN CORPUSCULAR HGB CONC 33.6 g/dL (32.0-36.0); MEAN CORPUSCULAR VOLUME 111 fl (80-97); PLATELET COUNT 115 10^3/uL (150-450); RED BLOOD COUNT 2.66 10^6/uL (3.72-5.28); RED CELL DISTRIBUTION WIDTH 14.5 % (11.5-14.0); WHITE BLOOD COUNT 6.5 10^3/uL (4.0-10.5)
[2018-05-06] MEDS ORDERED: MIDAZOLAM 2 MG/2 ML INJ ONE (08:32)
[2018-05-06] MEDS ORDERED: FENTANYL CITRATE INJ/PF 100 MCG/2 ML AMPUL ONE (08:32)
[2018-05-06] MEDS ORDERED: BACITRACIN INJ 50,000 UNIT VIAL ONE (08:32)
[2018-05-06] MEDS ORDERED: VANCOMYCIN HCL 500 MG in DEXTROSE 5%-WATER 100 ML IV ONE (09:00)
[2018-05-06 09:03] LABS: BLOOD UREA NITROGEN 87 mg/dL (7-20); GLUCOSE 85 mg/dL (75-110); POTASSIUM 4.4 mmol/L (3.6-5.0)
[2018-05-06 09:04] LABS: CARBON DIOXIDE 22 mmol/L (22-30); CHLORIDE 104 mmol/L (98-107)
[2018-05-06 09:05] LABS: ANION GAP 21 (5-19); SODIUM 147.1 mmol/L (137-145)
--- NOTE | 2018-05-06 10:37 | Discharge Summary ---
Discharge Summary (SDC) - Discharge Final Diagnosis: #1 clotted AV fistula left brachiocephalic. 2. End-stage renal disease on hemodialysis. 3. Multiple myeloma. 4. Hypertension. Date of Surgery: 05/06/18 Discharge Date: 05/06/18 Condition: Fair Treatment or Instructions: Discharge home [after recovery per ASU criteria]. Diet , [renal],as tolerated, when fully awake advance as tolerated. Activities within moderation encouraged. Follow up in my office by appointment in about [1 week]. Call for appointment. Leave wounds [covered], [keep clean and dry, until office visit in 1 week]. Hold of on school/work [until evaluation in office]. As per med rec. May shower [in 48 hrs], [try to keep operated area as dry as possible]. Referrals: FRANCINE LIMA PA-C [Primary Care Provider] - Discharge Diet: Other (Comments) - Renal. Respiratory Treatments at Home: Deep Breathing/Coughing Discharge Activity: Activity As Tolerated Report the Following to Your Physician Immediately: Shortness of Breath
--- NOTE | 2018-05-06 10:42 | Operative Report ---
Operative Report DATE OF SURGERY: 05/06/18 PREOPERATIVE DIAGNOSIS: #1 clotted AV fistula left brachiocephalic. 2. End- stage renal disease on hemodialysis. 3. Multiple myeloma. 4. Hypertension. POSTOPERATIVE DIAGNOSIS: #1 clotted AV fistula left brachiocephalic. 2. End- stage renal disease on hemodialysis. 3. Multiple myeloma. 4. Hypertension. OPERATION: 1. Ultrasound evaluation of the left femoral vein. 2. Insertion of PermCath catheter via real-time access of the left femoral vein. 3. Angiogram and interpretation. SURGEON: MARK VELARDE COMMERCIAL SOLAR SALES CONSULTANT: None. ANESTHESIA: Moderate Sedation TISSUE REMOVED OR ALTERED: Not applicable. COMPLICATIONS: None. ESTIMATED BLOOD LOSS: 2 mL. INTRAOPERATIVE FINDINGS: Of a quite small left femoral vein, estimated to be about 1 cm in diameter. Placed right beneath the artery. Access much facilitated by use of ultrasound. Satisfactory position with the tip of the catheter below the renals but above the bifurcation. Easy egress of blood and ingress of heparinized solution through both ports. Catheter angiogram demonstrates a substantial inferior vena cava, estimated to be about 3 cm. This should facilitate the pool for dialysis. Also noted is a completely clotted left brachiocephalic fistula with much bruising in the forearm. Quite tender in the fistula suggestive of inflammation. An attempt at thrombectomy may be done in the next day or 2. I feel the chance of success of small and will arrange for the patient to have a vein mapping for hopefully fistula in the right arm starting next week. PROCEDURE: After obtaining informed consent, the patient was taken to the [Environmental Services Project Manager] and positioned supine. The left groin and thigh were prepared with chlorhexidine and draped out with sterile linen. After the " universal timeout", in which it was verified that the patient continued to receive antibiotic, the procedure commenced. A steriley sheathed ultrasound probe was used to evaluate the left common femoral vein. Local anesthesia was infiltrated adjacent to the probe. Access into the [right internal jugular] vein was obtained using a micropuncture needle, followed by micropuncture wire and then a micropuncture catheter. This was followed by introduction of a 0.035 guidewire the tip of which was placed down into the inferior vena cava . A 36 cm long [split catheter] was now positioned over the upper lateral thigh and an exit site marked and locally anesthetized ,the catheter was placed between the 2 incisions. Proximally, the catheter was now positioned using a peel-away sheath, after dilation. Easy ingress of heparinized solution and egress of blood obtained through both ports. A completion angiogram was done by injecting contrast. The findings were as dictated. The groin incision was now closed using interrupted 3-0 PDS to the subcutaneous tissues, the catheter was anchored at the exit site using 3-0 PDS. A Biopatch device was now placed adjacent to the catheter. Dressings were applied and the procedure concluded. Exposure time: [0.1 minutes]. Exposure: [14.43 cGy] per centimeters squared. Contrast amount: [5 mL] of [id number] low osmolality. Copies of the dictated operative report for Dr. Mark Smith MD.concluded. Copies of the dictated operative report for Dr. Mark Smith MD.
[2018-05-06 12:17] VITALS: BP 123/78
--- NOTE | 2018-05-06 12:54 | RADIOLOGY REPORT (SQ) ---
EXAM DESCRIPTION: TUNNELED CENTRAL LINE COMPLETED DATE/TIME: 05/06/2018 12:22 pm REASON FOR STUDY: T82.858A T82.858A STENOSIS OF OTHER VASCULAR PROSTH DEV/GRFT, INIT COMPARISON: None. FLUOROSCOPY TIME: Less than 10 seconds 14 digital radiographic images saved to PACS. TECHNIQUE: Intra-operative images acquired during surgical procedure to evaluate progress. NUMBER OF IMAGES: 14 digital radiographic LIMITATIONS: None. FINDINGS: Intra procedural imaging and fluoro during placement of a central venous catheter with the tip in the inferior vena cava. Please see Dr. Smith operative report for further details. IMPRESSION: INTRA PROCEDURAL IMAGING ABOVE . COMMENT: Quality ID 145: Final reports for procedures using fluoroscopy that document radiation exp osure indices, or exposure time and number of fluorographic images (if radiation exposure indices are not available) Please consult full operative report of the attending physician for description of the procedure. TECHNICAL DOCUMENTATION: JOB ID: [id number] [employer]- All Rights Reserved Reading location - IP/workstation name: [email or web address]
== END 2018-05-06 11:50 | disposition home or self-care (01) ==
LOC: CCL 06:54
PROVIDERS: ATTEND Surgery
DX: T82.858A Stenosis of other vascular prosthetic devices, implants and grafts, initial encounter (principal); Y83.2 Surgical operation with anastomosis, bypass or graft as the cause of abnormal reaction of the patient, or of later complication, without mention of misadventure at the time of the procedure; I12.0 Hypertensive chronic kidney disease with stage 5 chronic kidney disease or end stage renal disease; N18.6 End stage renal disease; Z99.2 Dependence on renal dialysis; C90.00 Multiple myeloma not having achieved remission; Z88.0 Allergy status to penicillin; Z88.1 Allergy status to other antibiotic agents; Z88.5 Allergy status to narcotic agent; Z79.899 Other long term (current) drug therapy; Z79.82 Long term (current) use of aspirin; Z79.891 Long term (current) use of opiate analgesic
CPT/HCPCS: 36415; 85027; 80048; 36558; C1752; C1894; Q9967; C1769; J3490 ×2; A9270 ×2; J3370; J1644; J2250; J3010

== ENCOUNTER 2018-05-13 12:28 | Outpatient (CLI) | payer MEDICARE, OTHER ==
[~2018-05-13 12:28] MED LIST changes: +ACETAMINOPHEN 325 MG TABLET PO PRN; -DIAZEPAM 5 MG TABLET PO PRN; +DIPHENHYDRAMINE HCL 25 MG CAPSULE PO PRN; -OXYCODONE-ACETAMINOPHEN 5-325 MG TABLET PO PRN
[2018-05-13 13:31] LABS: HEMATOCRIT 23.4 % (36.0-47.0); MEAN CORPUSCULAR HEMOGLOBIN 36.4 pg (27.0-33.4); MEAN CORPUSCULAR HGB CONC 33.3 g/dL (32.0-36.0); MEAN CORPUSCULAR VOLUME 109 fl (80-97); PLATELET COUNT 117 10^3/uL (150-450); RED BLOOD COUNT 2.15 10^6/uL (3.72-5.28); RED CELL DISTRIBUTION WIDTH 14.7 % (11.5-14.0); WHITE BLOOD COUNT 4.8 10^3/uL (4.0-10.5)
[2018-05-13 13:33] LABS: HEMOGLOBIN 7.8 g/dL (12.0-15.5)
[2018-05-13] MEDS ORDERED: NORMAL SALINE 250 ML IV PRN (13:41)
[2018-05-13] MEDS ORDERED: ONDANSETRON 4 MG TAB.RAPDIS PO ONE (21:30)
[2018-05-13 22:15] VITALS: BP 108/63
== END 2018-05-13 22:45 | disposition home or self-care (01) ==
LOC: II 12:28 → 2S 12:30 → II 22:45
PROVIDERS: ATTEND Internal Medicine Hematology & Oncology
PROC: 30243N1 Transfusion of Nonautologous Red Blood Cells into Central Vein, Percutaneous Approach (ICD-10-PCS; principal; 2018-05-13)
DX: C90.01 Multiple myeloma in remission (principal); N18.9 Chronic kidney disease, unspecified; D63.1 Anemia in chronic kidney disease
CPT/HCPCS: 36591; 86900; 86901; 36415; 36430; 86850; 86920; P9016; A9270 ×3; S0119

== ENCOUNTER → 2018-05-16 | Outpatient (CLI) | payer MEDICARE, OTHER ==
--- NOTE | 2018-05-16 15:02 | RADIOLOGY REPORT (SQ) ---
EXAM DESCRIPTION: CHEST 2 VIEWS; RIBS LEFT W/O PA CHEST COMPLETED DATE/TIME: 05/16/2018 1:48 pm REASON FOR STUDY: SEGMENTAL AND SOMATIC DYSFUNCTION OF RIB CAGE; SEGMENTAL AND SOMATIC DYSFUNCTION O F RIB CAGE (1SILDE 3 VIEWS) M99.08 SEGMENTAL AND SOMATIC DYSFUNCTION OF RIB CAGE COMPARISON: PET-CT 02/09/2017 Chest films 09/11/2017, 09/13/2017, 11/05/2017 TECHNIQUE: PA and lateral view of the chest and additional views of the left ribs acquired. NUMBER OF VIEWS: PA and lateral chest, Left rib detail films four views LIMITATIONS: None. FINDINGS: PA and LATERAL CXR: No focal infiltrates. Pleural no pleural effusion or pneumothorax. Cardiac silhouette size, gideon unremarkable. Left-sided permanent central line tip superior vena cava. Left upper extremity vascular stent with s urgical clips from dialysis access. At the bottom edge of the field of view, a femoral central venous dialysis catheter is present with t he tip in the IVC. RIBS: No displaced rib fractures. No lytic or blastic bony lesions. Advanced osteoarthritis left sh oulder OTHER: No other significant finding. IMPRESSION: NO PNEUMOTHORAX. NO DISPLACED RIB FRACTURES. COMMENT: SITE OF TRAUMA/COMPLAINT MARKED/STAMP COMPLETED: YES. TECHNICAL DOCUMENTATION: JOB ID: [id number] [employer]- All Rights Reserved Reading location - IP/workstation name: [email or web address]
--- NOTE | 2018-05-16 15:02 | RADIOLOGY REPORT (SQ) ---
EXAM DESCRIPTION: CHEST 2 VIEWS; RIBS LEFT W/O PA CHEST COMPLETED DATE/TIME: 05/16/2018 1:48 pm REASON FOR STUDY: SEGMENTAL AND SOMATIC DYSFUNCTION OF RIB CAGE; SEGMENTAL AND SOMATIC DYSFUNCTION O F RIB CAGE (1SILDE 3 VIEWS) M99.08 SEGMENTAL AND SOMATIC DYSFUNCTION OF RIB CAGE COMPARISON: PET-CT 02/09/2017 Chest films 09/11/2017, 09/13/2017, 11/05/2017 TECHNIQUE: PA and lateral view of the chest and additional views of the left ribs acquired. NUMBER OF VIEWS: PA and lateral chest, Left rib detail films four views LIMITATIONS: None. FINDINGS: PA and LATERAL CXR: No focal infiltrates. Pleural no pleural effusion or pneumothorax. Cardiac silhouette size, gideon unremarkable. Left-sided permanent central line tip superior vena cava. Left upper extremity vascular stent with s urgical clips from dialysis access. At the bottom edge of the field of view, a femoral central venous dialysis catheter is present with t he tip in the IVC. RIBS: No displaced rib fractures. No lytic or blastic bony lesions. Advanced osteoarthritis left sh oulder OTHER: No other significant finding. IMPRESSION: NO PNEUMOTHORAX. NO DISPLACED RIB FRACTURES. COMMENT: SITE OF TRAUMA/COMPLAINT MARKED/STAMP COMPLETED: YES. TECHNICAL DOCUMENTATION: JOB ID: [id number] [employer]- All Rights Reserved Reading location - IP/workstation name: [email or web address]
== END ==
LOC: RAD 13:06
PROVIDERS: ATTEND Physician Assistant
DX: M99.08 Segmental and somatic dysfunction of rib cage (principal)
CPT/HCPCS: 71046

== ENCOUNTER 2018-07-15 09:13 | Emergency (ER) | payer MEDICARE, OTHER ==
[2018-07-15] MEDS ORDERED: PREDNISONE 20 MG TABLET PO ONE (09:57)
[2018-07-15] MEDS ORDERED: HYDROMORPHONE HCL INJ/PF 2 MG/ML AMPULE IV ONE (10:01)
--- NOTE | 2018-07-15 10:02 | ER Document Report ---
ED Allergic Reaction - General Chief Complaint: Allergic Reaction Stated Complaint: POSSIBLE ALLERGIC REACTION Time Seen by Provider: 07/15/18 09:27 Notes: 63-year-old female to emergency department for evaluation for possible allergic reaction. Patient was at dialysis. Was recently started on oxycodone. Had a reverse shoulder surgery on Sunday. Was discharged yesterday. She had oral oxycodone while in the hospital yesterday and developed swelling to her lips and tongue. Received some Benadryl. Took another dose of oxycodone this morning and her lips and tongue swelled again while she was at dialysis. Received Benadryl at dialysis. Denies any difficulty swallowing. Feels much better at this time. On arrival patient was examined immediately on arrival. No signs of angioedema. TRAVEL OUTSIDE OF THE [place] IN LAST 30 DAYS: No - Related Data Allergies/Adverse Reactions: adhesive [Adhesive] Allergy (Severe, Verified 04/02/18 12:16) tears skin codeine [Codeine] Allergy (Severe, Verified 04/02/18 12:16) "crazy" erythromycin base [Erythromycin Base] Allergy (Intermediate, Verified 04/02/18 12:16) Anaphylaxis Penicillins Allergy (Mild, Verified 04/02/18 12:16) Hives levofloxacin [From Levaquin] Adverse Reaction (Severe, Verified 04/02/18 12:16) Swelling of tongue Past Medical History - General Information source: Patient - Social History Smoking Status: Never Smoker Frequency of alcohol use: None Drug Abuse: None Lives with: Spouse/Significant other Family History: CAD - Father, Other - Clotting disorder-father - Past Medical History Cardiac Medical History: Reports: Hx Hypertension, Hx Peripheral Vascular Disease Denies: Hx Coronary Artery Disease, Hx Heart Attack Pulmonary Medical History: Reports: Hx Sleep Apnea - On CPap Denies: Hx Asthma, Hx Bronchitis, Hx COPD, Hx Pneumonia Neurological Medical History: Denies: Hx Cerebrovascular Accident, Hx Seizures Renal/ Medical History: Reports: Hx End Stage Renal Disease, Hx Hemodialysis, Hx Peritoneal Dialysis Musculoskeletal Medical History: Denies Hx Arthritis Psychiatric Medical History: Reports: Hx Depression Past Surgical History: Reports: Hx Gastric Bypass Surgery, Hx Orthopedic Surgery - Right TKA, left rotator cuff, Hx Tonsillectomy, Hx Vascular Surgery - Left arm fistula, Other - Stem cell transplant, bone marrow biopsy, Port-A- Cath. Denies: Hx Hysterectomy, Hx Pacemaker - Immunizations Hx Diphtheria, Pertussis, Tetanus Vaccination: Yes Hx Pneumococcal Vaccination: 08/26/13 Review of Systems - Review of Systems Notes: Constitutional: denies: Chills, Diaphoresis, Fever, Malaise, Weakness EENT: Denies any mouth sores. Thinks that her tongue was swollen. Difficulty swallowing. No eye pain or ear pain. Cardiovascular: denies: Palpitations, Heart racing, Orthopnea, Dyspnea, Chest pain Respiratory: denies: Cough, Hurts to breathe, Wheezing, Shortness of breath Gastrointestinal: denies: Abdominal pain, Diarrhea, Nausea, Vomiting, Black stools, bright red blood in stool Genitourinary: denies: Burning, Dysuria, Discharge, Frequency, Flank pain, Hematuria. Patient on dialysis Musculoskeletal: Patient complaining of pain in her right shoulder status post surgery on Sunday for reverse shoulder Hematologic/Lymphatic: denies: Anemia, Easy bleeding, Easy bruising, Blood clots. Patient with multiple myeloma on chemotherapy. Neurological/Psychological: denies: Confusion, Dementia, Depression, Loss of consciousness Skin: No lesions, no masses, no skin breakdown, no abscesses Physical Exam - Vital signs Vitals: Temp Pulse Resp BP Pulse Ox 98.3 F 87 16 152/80 H 94 07/15/18 09:27 07/15/18 09:27 07/15/18 09:27 07/15/18 09:27 07/15/18 09:27 Interpretation: Normal - General General appearance: Appears well, Alert - HEENT Head: Normocephalic, Atraumatic Eyes: Normal Pupils: PERRL Nasal: Normal Mouth/Lips: Normal Mucous membranes: Normal Pharynx: Normal Neck: Normal - Respiratory Respiratory status: No respiratory distress Chest status: Nontender Breath sounds: Normal Chest palpation: Normal - Cardiovascular Rhythm: Regular Heart sounds: Normal auscultation Murmur: No - Abdominal Inspection: Normal Distension: No distension Bowel sounds: Normal Tenderness: Nontender Organomegaly: No organomegaly - Back Back: Normal, Nontender - Extremities General upper extremity: Other - Patient is postop right shoulder sling and with pulses present right upper extremity. General lower extremity: Normal inspection, Nontender, Normal color, Normal ROM , Normal temperature, Normal weight bearing. No: Zaheer's sign - Neurological Neuro grossly intact: Yes Cognition: Normal Orientation: AAOx4 [place] Coma Scale Eye Opening: Spontaneous [place] Coma Scale Verbal: Oriented [place] Coma Scale Motor: Obeys Commands [place] Coma Scale Total: 15 Speech: Normal Motor strength normal: LUE, RUE, LLE, RLE Sensory: Normal - Psychological Associated symptoms: Normal affect, Normal mood - Skin Skin Temperature: Warm Skin Moisture: Dry Skin Color: Normal Course - Re-evaluation Re-evalutation: 07/15/18 10:52 This time I find no evidence of angioedema. I am recommending that she stop the oxycodone. We will give her a dose of hydrocodone here in the ER since she was on hydrocodone while in the hospital. - Vital Signs Vital signs: Temp Pulse Resp BP Pulse Ox 98.3 F 87 16 152/80 H 94 07/15/18 09:27 07/15/18 09:27 07/15/18 09:27 07/15/18 09:27 07/15/18 09:27 Discharge - Discharge Clinical Impression: Postoperative pain of extremity Medication reaction Qualifiers: Encounter type: initial encounter Qualified Code(s): T50.905A - Adverse effect of unspecified drugs, medicaments and biological substances, initial encounter Condition: Good Disposition: HOME, SELF-CARE Instructions: Medication Side Effects ([facility]), Pain Management Prescriptions: Hydromorphone HCl [Dilaudid 2 mg Tablet] 2 mg PO QID PRN 5 Days #20 tablet PRN Reason: For Pain Scale 3-4 Referrals: DAYSI DORSEY MD [Primary Care Provider] - Follow up as needed
[2018-07-15] MEDS ORDERED: HYDROMORPHONE HCL 2 MG TABLET PO ONE (10:48)
[2018-07-15 11:18] VITALS: BP 145/80
== END 2018-07-15 11:30 | disposition home or self-care (01) ==
LOC: ER 09:13
DX: T50.905A Adverse effect of unspecified drugs, medicaments and biological substances, initial encounter (principal); R22.0 Localized swelling, mass and lump, head; Y92.538 Other ambulatory health services establishments as the place of occurrence of the external cause; G89.18 Other acute postprocedural pain; M25.511 Pain in right shoulder; I12.0 Hypertensive chronic kidney disease with stage 5 chronic kidney disease or end stage renal disease; N18.6 End stage renal disease; Z99.2 Dependence on renal dialysis; Z91.048 Other nonmedicinal substance allergy status; Z88.5 Allergy status to narcotic agent; Z88.1 Allergy status to other antibiotic agents; Z88.0 Allergy status to penicillin; Z98.84 Bariatric surgery status
CPT/HCPCS: 99283; A9270 ×2; J7512

== ENCOUNTER 2018-12-09 09:55 | Emergency (ER) | payer MEDICARE, OTHER ==
[2018-12-09] MEDS ORDERED: METHYLPREDNISOLONE INJ 125 MG/2 ML SDV IV ONE (10:47)
[2018-12-09] MEDS ORDERED: IPRATROPIUM/ALBUTEROL 0.5-2.5 MG/3 ML AMPUL NEB ONE (10:47)
[2018-12-09] MEDS ORDERED: MAGNESIUM SULFATE/D5W 1 GM/100 ML RTUPB IV ONE (10:47)
--- NOTE | 2018-12-09 11:42 | RADIOLOGY REPORT (SQ) ---
EXAM DESCRIPTION: CHEST 2 VIEWS COMPLETED DATE/TIME: 12/09/2018 11:28 am REASON FOR STUDY: sob COMPARISON: 05/16/2018 EXAM PARAMETERS: NUMBER OF VIEWS: two views TECHNIQUE: Digital Frontal and Lateral radiographic views of the chest acquired. RADIATION DOSE: NA LIMITATIONS: none FINDINGS: LUNGS AND PLEURA: No opacities, masses or pneumothorax. No pleural effusion. MEDIASTINUM AND HILAR STRUCTURES: No masses or contour abnormalities. HEART AND VASCULAR STRUCTURES: Heart normal size. No evidence for failure. BONES: No acute findings. HARDWARE: None in the chest. OTHER: Stable position of left-sided port. IMPRESSION: NO ACUTE RADIOGRAPHIC FINDING IN THE CHEST. TECHNICAL DOCUMENTATION: JOB ID: [id number] [employer]- All Rights Reserved Reading location - IP/workstation name: [email or web address]
[2018-12-09] MEDS ORDERED: ALBUTEROL SULFATE 0.083% NEB 2.5 MG/3 ML AMPUL NEB ONE (13:26)
[2018-12-09] MEDS ORDERED: PREDNISONE 20 MG TABLET PO ONE (13:27)
[2018-12-09] MEDS ORDERED: ALBUTEROL SULFATE HFA (90 MCG/PUFF) 8 GM MDI (1 MDI/ER DISP) IH ONE (13:28)
--- NOTE | 2018-12-09 13:34 | ER Document Report ---
ED General - General Chief Complaint: Shortness Of Breath Stated Complaint: SHORTNESS OF BREATH Time Seen by Provider: 12/09/18 10:36 TRAVEL OUTSIDE OF THE [place] IN LAST 30 DAYS: No - HPI Patient complains to provider of: Short of breath Notes: Patient coming in for shortness of breath and cough ongoing for greater than a week. 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 Olsen has been placed on azithromycin patient states that she has 2 more days of the azithromycin patient is end-stage renal dialysis patient and is coming from dialysis. Patient states no fevers no chills no night sweats scant production of her cough. Patient does have a history of smoking in the past. Patient states compliance with her medication regimen. Upon my evaluation patient is audibly wheezing. Patient otherwise states that she has had home O2 in the past because of bilateral pneumonia and continues to use this intermittently as needed patient states she has needed for the last few days. Denies any recent travel denies any chest pain abdominal pain - Related Data Allergies/Adverse Reactions: adhesive [Adhesive] Allergy (Severe, Verified 12/09/18 09:57) tears skin codeine [Codeine] Allergy (Severe, Verified 12/09/18 09:57) "crazy" erythromycin base [Erythromycin Base] Allergy (Intermediate, Verified 12/09/18 09:57) Anaphylaxis Penicillins Allergy (Mild, Verified 12/09/18 09:57) Hives levofloxacin [From Levaquin] Adverse Reaction (Severe, Verified 12/09/18 09:57) Swelling of tongue Past Medical History - Social History Smoking Status: Unknown if Ever Smoked Chew tobacco use (# tins/day): No Frequency of alcohol use: None Family History: CAD - Father, Other - Clotting disorder-father Patient has suicidal ideation: No Patient has homicidal ideation: No - Past Medical History Cardiac Medical History: Reports: Hx Hypertension, Hx Peripheral Vascular Disease Denies: Hx Coronary Artery Disease, Hx Heart Attack Pulmonary Medical History: Reports: Hx Sleep Apnea - On CPap Denies: Hx Asthma, Hx Bronchitis, Hx COPD, Hx Pneumonia Neurological Medical History: Denies: Hx Cerebrovascular Accident, Hx Seizures Renal/ Medical History: Reports: Hx End Stage Renal Disease, Hx Hemodialysis, Hx Peritoneal Dialysis Musculoskeletal Medical History: Denies Hx Arthritis Psychiatric Medical History: Reports: Hx Depression Past Surgical History: Reports: Hx Gastric Bypass Surgery, Hx Orthopedic Surgery - Right TKA, left rotator cuff, Hx Tonsillectomy, Hx Vascular Surgery - Left arm fistula, Other - Stem cell transplant, bone marrow biopsy, Port-A-Cath. Denies: Hx Hysterectomy, Hx Pacemaker - Immunizations Hx Diphtheria, Pertussis, Tetanus Vaccination: Yes Hx Pneumococcal Vaccination: 08/26/13 Review of Systems - Review of Systems Constitutional: No symptoms reported EENT: No symptoms reported Cardiovascular: No symptoms reported Respiratory: Short of breath Gastrointestinal: No symptoms reported Genitourinary: No symptoms reported Female Genitourinary: No symptoms reported Musculoskeletal: No symptoms reported Skin: No symptoms reported Hematologic/Lymphatic: No symptoms reported Neurological/Psychological: No symptoms reported -: Yes All other systems reviewed and negative Physical Exam - Vital signs Vitals: Temp Pulse Resp BP Pulse Ox 98.3 F 99 16 145/75 H 93 12/09/18 10:04 12/09/18 10:04 12/09/18 10:04 12/09/18 10:04 12/09/18 10:04 Interpretation: Normal - General General appearance: Appears well, Alert - HEENT Head: Normocephalic, Atraumatic Eyes: Normal Pupils: PERRL - Respiratory Respiratory status: No respiratory distress Chest status: Nontender Breath sounds: Wheezing Chest palpation: Normal Notes: port upper left chest - Cardiovascular Rhythm: Regular Heart sounds: Normal auscultation Murmur: No - Abdominal Inspection: Normal Distension: No distension Bowel sounds: Normal Tenderness: Nontender Organomegaly: No organomegaly - Back Back: Normal, Nontender - Extremities General upper extremity: Normal inspection, Nontender, Normal color, Normal ROM, Normal temperature General lower extremity: Normal inspection, Nontender, Normal color, Normal ROM, Normal temperature, Normal weight bearing. No: Zaheer's sign - Neurological Neuro grossly intact: Yes Cognition: Normal Orientation: AAOx4 [place] Coma Scale Eye Opening: Spontaneous [place] Coma Scale Verbal: Oriented [place] Coma Scale Motor: Obeys Commands [place] Coma Scale Total: 15 Speech: Normal Motor strength normal: LUE, RUE, LLE, RLE Sensory: Normal - Psychological Associated symptoms: Normal affect, Normal mood - Skin Skin Temperature: Warm Skin Moisture: Dry Skin Color: Normal Course - Re-evaluation Re-evalutation: 12/09/18 15:05 We are unable to obtain laboratory studies from the port therefore patient refused any other blood draws or venous puncture. Patient was given mag Solu- Medrol and breathing treatments patient states that she feels much better with a chest x-ray showing no signs of pneumonia patient will continue her azithromycin and start on steroids also use inhaler at home. More likely patient has underlying COPD/bronchitis as exacerbated 12/09/18 15:06 - Vital Signs Vital signs: Temp Pulse Resp BP Pulse Ox 98.3 F 99 20 133/81 H 97 12/09/18 10:04 12/09/18 10:04 12/09/18 13:01 12/09/18 13:00 12/09/18 13:01 Discharge - Discharge Clinical Impression: Bronchitis Condition: Good Disposition: HOME, SELF-CARE Instructions: Bronchitis With Bronchospasm (Wheezing) ([facility]) Additional Instructions: Please continue your bronchodilator therapy at home using the inhaler that we gave you here in ER 2 puffs every 2-4 hours as needed for shortness of breath. He may try the Tessalon Perles given to you here in the ER for cough suppression also recommend honey. Please continue to take your azithromycin to completion follow-up with your primary care physician and your kidney specialist return to the ER if you feel like you are getting worse. Please take steroids as prescribed Prescriptions: Benzonatate [Tessalon Perle 100 mg Capsule] 100 mg PO Q8HP PRN #40 cap PRN Reason: Albuterol Sulfate [Proair HFA Inhalation Aerosol 8.5 gm MDI] 2 puff IH Q4H PRN #1 mdi PRN Reason: Prednisone [Deltasone] 60 mg PO DAILY #24 tablet Referrals: JUVENCIO HALL JR, MD [Primary Care Provider] - Follow up as needed
[2018-12-09] MEDS ORDERED: BENZONATATE 100 MG CAPSULE PO ONE (13:55)
[2018-12-09 14:02] VITALS: BP 133/81
--- NOTE | 2018-12-10 00:12 | EKG REPORT ---
SEVERITY:- ABNORMAL ECG - SINUS RHYTHM PROMINENT P WAVES, NONDIAGNOSTIC CONSIDER ANTEROSEPTAL INFARCT BORDERLINE PROLONGED QT INTERVAL : Confirmed by: Cisco Rojo 10-Dec-2018 00:11:14
== END 2018-12-09 14:01 | disposition home or self-care (01) ==
LOC: ER 09:55
DX: J40 Bronchitis, not specified as acute or chronic (principal); R06.02 Shortness of breath; R05 Cough; R06.2 Wheezing; I12.0 Hypertensive chronic kidney disease with stage 5 chronic kidney disease or end stage renal disease; N18.6 End stage renal disease; Z99.2 Dependence on renal dialysis; Z87.891 Personal history of nicotine dependence; Z91.048 Other nonmedicinal substance allergy status; Z88.5 Allergy status to narcotic agent; Z88.1 Allergy status to other antibiotic agents; Z88.0 Allergy status to penicillin
CPT/HCPCS: 93005; 36591; 94640 ×2; 99285; 96375; 96365; 71046; 93010; A9270 ×4; J2930; J3475; J3490; J7512; J7620

== ENCOUNTER 2018-12-17 06:32 | Day surgery (SDC) | payer MEDICARE, OTHER ==
[~2018-12-17 06:32] MED LIST changes: -ACETAMINOPHEN 325 MG TABLET PO PRN; +DIAZEPAM 5 MG TABLET PO PRN; -DIPHENHYDRAMINE HCL 25 MG CAPSULE PO PRN; +OXYCODONE-ACETAMINOPHEN 5-325 MG TABLET PO PRN
[2018-12-17] MEDS ORDERED: OXYCODONE-ACETAMINOPHEN 5-325 MG TABLET ONE (07:09)
[2018-12-17] MEDS ORDERED: DIAZEPAM 5 MG TABLET ONE (07:09)
[2018-12-17 07:19] LABS: HEMATOCRIT 34.1 % (36.0-47.0); HEMOGLOBIN 11.6 g/dL (12.0-15.5); MEAN CORPUSCULAR HEMOGLOBIN 34.6 pg (27.0-33.4); MEAN CORPUSCULAR HGB CONC 34.1 g/dL (32.0-36.0); MEAN CORPUSCULAR VOLUME 102 fl (80-97); PLATELET COUNT 156 10^3/uL (150-450); RED BLOOD COUNT 3.36 10^6/uL (3.72-5.28); RED CELL DISTRIBUTION WIDTH 14.1 % (11.5-14.0); WHITE BLOOD COUNT 11.2 10^3/uL (4.0-10.5)
[2018-12-17 07:42] LABS: ANION GAP 15 (5-19); BLOOD UREA NITROGEN 55 mg/dL (7-20); CALCIUM 8.9 mg/dL (8.4-10.2); CARBON DIOXIDE 25 mmol/L (22-30); CHLORIDE 101 mmol/L (98-107); GLUCOSE 88 mg/dL (75-110); POTASSIUM 3.5 mmol/L (3.6-5.0); SODIUM 141.4 mmol/L (137-145)
[2018-12-17] MEDS ORDERED: FENTANYL CITRATE INJ/PF 100 MCG/2 ML AMPUL ONE (07:58)
[2018-12-17] MEDS ORDERED: MIDAZOLAM 2 MG/2 ML INJ ONE (07:58)
[2018-12-17] MEDS ORDERED: LIDOCAINE 0.5% INJ-PF (5 MG/ML) 50 ML SDV ONE (07:58)
[2018-12-17] MEDS ORDERED: HEPARIN SOD (PORCINE) 5,000 UNIT/ML 1 ML SYRINGE ONE (07:58)
[2018-12-17] MEDS ORDERED: ALTEPLASE INJ 2 MG VIAL (CATH CLEARANCE) ONE (09:23)
--- NOTE | 2018-12-17 10:59 | RADIOLOGY REPORT (SQ) ---
EXAM DESCRIPTION: FISTULAGRAM W/PLASTY COMPLETED DATE/TIME: 12/17/2018 10:44 am REASON FOR STUDY: T82.858A T82.858A STENOSIS OF OTHER VASCULAR PROSTH DEV/GRFT, INIT COMPARISON: Left upper extremity fistulogram 04/25/2018 FLUOROSCOPY TIME: 8.5 minutes 90 digital radiographic images saved to PACS. TECHNIQUE: Intra-operative images acquired during surgical procedure to evaluate progress. NUMBER OF IMAGES: 90 digital radiographic images saved to pac's LIMITATIONS: None. FINDINGS: Intra procedural imaging and fluoro during evaluation and plasty of a left upper extremity venous dialysis access by Dr. Smith. Please see the operative report. IMPRESSION: Intra procedural imaging and fluoro COMMENT: Quality ID [id number]: Final reports for procedures using fluoroscopy that document radiation exp osure indices, or exposure time and number of fluorographic images (if radiation exposure indices are not available) Please consult full operative report of the attending physician for description of the procedure. TECHNICAL DOCUMENTATION: JOB ID: [id number] [employer]- All Rights Reserved Reading location - IP/workstation name: [email or web address]
--- NOTE | 2018-12-17 11:25 | Discharge Summary ---
Discharge Summary (SDC) - Discharge Final Diagnosis: #1 malfunctioning arteriovenous fistula, left brachiocephalic. 2. Malfunctioning Port-A-Cath. 3. End-stage renal disease on hemodialysis. 4. Multiple myeloma. 5. Hypertension. Date of Surgery: 12/17/18 Discharge Date: 12/17/18 Condition: Good Treatment or Instructions: Discharge home [after recovery per ASU criteria]. Diet , [renal],as tolerated, when fully awake advance as tolerated. Activities within moderation encouraged. Follow up in my office by appointment in about [1 week]. Call for appointment. Leave wounds [covered], [keep clean and dry, until hemodialysis, the suture can be removed at hemodialysis]. Hold of on school/work [until evaluation in office]. Follow-up in office by appointment on of this week. Meds per med rec. May shower [in 48 hrs], [try to keep operated area as dry as possible]. Referrals: JUVENCIO HALL JR, MD [Primary Care Provider] - Discharge Diet: As Tolerated, Other (Comments) - Renal. Discharge Activity: Activity As Tolerated Report the Following to Your Physician Immediately: Shortness of Breath, Unusual Bleeding
--- NOTE | 2018-12-17 11:26 | Operative Report ---
Operative Report DATE OF SURGERY: 12/17/18 PREOPERATIVE DIAGNOSIS: #1 malfunctioning arteriovenous fistula, left brachioce phalic. 2. Malfunctioning Port-A-Cath. 3. End-stage renal disease on hemodialysis. 4. Multiple myeloma. 5. Hypertension. POSTOPERATIVE DIAGNOSIS: #1 malfunctioning arteriovenous fistula, left brachiocephalic. 2. Malfunctioning Port-A-Cath. 3. End-stage renal disease on hemodialysis. 4. Multiple myeloma. 5. Hypertension. OPERATION: 1. Needle access in the fistula. 2. Angioplasty and peripheral arteriovenous fistula. 3. Angioplasty in central veins, left innominate. 4. Angioplasty with drug-eluting balloon in the left innominate vein. 5. Snare manipulation of Port-A-Cath catheter. 6. Angiogram and interpretation.
[2018-12-17 11:40] VITALS: BP 159/88
--- NOTE | 2018-12-18 16:01 | Operative Report ---
Operative Report DATE OF SURGERY: 12/17/18 PREOPERATIVE DIAGNOSIS: #1 malfunctioning arteriovenous fistula, left brachioce phalic. 2. Malfunctioning Port-A-Cath. 3. End-stage renal disease on hemodialysis. 4. Multiple myeloma. 5. Hypertension. POSTOPERATIVE DIAGNOSIS: #1 malfunctioning arteriovenous fistula, left brachiocephalic. 2. Malfunctioning Port-A-Cath. 3. End-stage renal disease on hemodialysis. 4. Multiple myeloma. 5. Hypertension. OPERATION: 1. Needle access in the fistula. 2. Angioplasty and peripheral arteriovenous fistula. 3. Angioplasty in central veins, left innominate. 4. Angioplasty with drug-eluting balloon in the left innominate vein. 5. Snare manipulation of Port-A-Cath catheter. 6. Angiogram and interpretation. SURGEON: MARK VELARDE TEMPORARY OFFICE ASSISTANT: None. ANESTHESIA: Moderate Sedation TISSUE REMOVED OR ALTERED: Not applicable. COMPLICATIONS: None. ESTIMATED BLOOD LOSS: 5 mL. INTRAOPERATIVE FINDINGS: Of a well founded left arm brachial cephalic vein fistula. Semi-obstructed bruit initially. Satisfactory after the procedure. Also noted on angiogram is a covered stent in the mid left arm. The patient also has a Port-A-Cath in place. The Port-A-Cath is partially withdrawn with the coil in the left innominate. Angiogram also demonstrated stenosis in the arm stent and also towards the arterial anastomosis. This was for a distance of about 7 cm and an aggregate of about 70% of the adjacent lumen. Also noted are stenoses in the left innominate vein estimated to be 70-80% of the adjacent lumen. All of the stenoses were much improved and in the case of the arm vein eliminated by angioplasty. Angioplasty with a 10 mm balloon in the central system. This was done with drug-eluting balloon. Angioplasty peripherally using an 8 mm balloon. Attempts were made to pull the catheter into its correct position. It was successfully grasped using a snare however there was insufficient pushability to allow for removal of the loop in the innominate. This catheter may need to be replaced in the future however currently the Port-A-Cath is functioning. The patient needs both Port-A-Cath and the fistula for adequate access. PROCEDURE: PROCEDURE: After verifying the procedure and having obtained informed consent, the patient's left arm was prepared with Chlorhexidine and draped out with sterile linen. Local anesthesia infiltrated. Percutaneous access into the fistula ,[ antegrade], obtained about [6 cm] from the arteriovenous anastomosis using a micro puncture needle followed by micro puncture wire and then a micro puncture catheter. A 0.035 [place] wire was inserted. . and over this, a 7 [place] short introducer was placed. Angiogram demonstrated the aforementioned findings. Angioplasty was elected this was followed by a [8-mm] angioplasty balloon . Angioplasty was done in the left innominate vein and into the subclavian. Completion angiogram demonstrated improvement. The same balloon was now withdrawn and angioplasty done the cephalad portion of the stent down to the introducer. Inflating up to 12 atmospheres for a 1-3 minutes at a time.]. Completion angiogram here was satisfactory. A snare was now inserted through its catheter and used to manipulate the portacatheter into the right atrium. The catheter was grasped with a snare and pushed and pulled down into the right atrium. There was insufficient push ability with buckling of the snare and its catheter, minimal advancement of the cath of the Port-A-Cath. Several such attempts were made and finally this was abandoned. A 10 mm drug-eluting balloon was now inserted over the culprit area in the left innominate and inflated up to 10 aydin for 4 minutes. The balloon was also used to inflate the area in the subclavian and the covered portion of the innominate. This was done up to 10 aydin for 3 minutes. Completion angiogram demonstrated [satisfactory result]. The instrumentation was now withdrawn over a short piece of catheter and a 4-0 Prolene suture. Dressings applied, procedure concluded. DICTATING PHYSICIAN: MARK SZYMANSKI M.D. cc: MARK SZYMANSKI M.D. ([id number]) >>
== END 2018-12-17 11:30 | disposition home or self-care (01) ==
LOC: CCL 06:32
PROVIDERS: ATTEND Surgery
DX: T82.858A Stenosis of other vascular prosthetic devices, implants and grafts, initial encounter (principal); Y83.2 Surgical operation with anastomosis, bypass or graft as the cause of abnormal reaction of the patient, or of later complication, without mention of misadventure at the time of the procedure; I12.0 Hypertensive chronic kidney disease with stage 5 chronic kidney disease or end stage renal disease; N18.6 End stage renal disease; Z99.2 Dependence on renal dialysis; C90.00 Multiple myeloma not having achieved remission; Z88.0 Allergy status to penicillin; Z88.1 Allergy status to other antibiotic agents; Z88.5 Allergy status to narcotic agent; Z79.891 Long term (current) use of opiate analgesic; Z79.899 Other long term (current) drug therapy; Z79.82 Long term (current) use of aspirin; Z96.651 Presence of right artificial knee joint
CPT/HCPCS: 36415; 85027; 80048; 36907; 36902; C1725; C2623; C1752; C1894; Q9967; C1769; J2250; J1644 ×2; A9270 ×2; J3010; J3490; J2997

== ENCOUNTER 2019-03-02 11:00 | Emergency (ER) | payer MEDICARE, OTHER ==
[2019-03-02] MEDS ORDERED: IPRATROPIUM/ALBUTEROL 0.5-2.5 MG/3 ML AMPUL NEB ONE (11:20)
--- NOTE | 2019-03-02 11:22 | ER Document Report ---
ED Medical Screen (RME) - General Chief Complaint: Shortness Of Breath Stated Complaint: COUGH/DIFFICULTY BREATHING Time Seen by Provider: 03/02/19 11:13 Primary Care Provider: JUVENCIO HALL JR, MD [Primary Care Provider] - Follow up as needed TRAVEL OUTSIDE OF THE [place] IN LAST 30 DAYS: No - HPI Notes: 03/02/19 11:21 Patient is a 64-year-old female with an active history of multiple myeloma and on chemotherapy every 2 weeks, end-stage renal disease (on dialysis every Sunday/Sunday/Sunday), hypertension who presents to the emergency department complaining of nasal congestion/discharge, productive green sputum cough, wheezing that began 3 days ago. She did complete dialysis on Sunday. She is able to eat and drink, but does have a decreased solid food intake. Denies QUEVEDO, fever, neck pain, CP, Abd pain, or rash. I have treated and performed a rapid initial assessment of this patient. A comprehensive ED assessment and evaluation of the patient, analysis of test results and completion of medical decision making process will be conducted by additional ED providers. PHYSICAL EXAMINATION: GENERAL: Well-appearing, well-nourished and in no acute distress. A&Ox4. Answers questions appropriately. LUNGS: scant wheezes b/l, no retractions. no tachypnea or hypoxia HEART: Regular rate and rhythm without murmurs, rubs, gallops. Extremities: No cyanosis, clubbing, or edema b/l. NEUROLOGICAL: Normal speech, normal gait. PSYCH: Normal mood, normal affect. - Related Data Allergies/Adverse Reactions: adhesive [Adhesive] Allergy (Severe, Verified 12/09/18 09:57) tears skin codeine [Codeine] Allergy (Severe, Verified 12/09/18 09:57) "crazy" erythromycin base [Erythromycin Base] Allergy (Intermediate, Verified 12/09/18 09:57) Anaphylaxis Penicillins Allergy (Mild, Verified 12/09/18 09:57) Hives levofloxacin [From Levaquin] Adverse Reaction (Severe, Verified 12/09/18 09:57) Swelling of tongue Past Medical History - Past Medical History Cardiac Medical History: Reports: Hx Hypertension, Hx Peripheral Vascular Disease Denies: Hx Coronary Artery Disease, Hx Heart Attack Pulmonary Medical History: Reports: Hx Sleep Apnea - On CPap Denies: Hx Asthma, Hx Bronchitis, Hx COPD, Hx Pneumonia Neurological Medical History: Denies: Hx Cerebrovascular Accident, Hx Seizures Renal/ Medical History: Reports: Hx End Stage Renal Disease, Hx Hemodialysis, Hx Peritoneal Dialysis Musculoskeltal Medical History: Denies Hx Arthritis Psychiatric Medical History: Reports: Hx Depression Past Surgical History: Reports: Hx Gastric Bypass Surgery, Hx Orthopedic Surgery - Right TKA, left rotator cuff, Hx Tonsillectomy, Hx Vascular Surgery - Left arm fistula, Other - Stem cell transplant, bone marrow biopsy, Port-A-Cath. Denies: Hx Hysterectomy, Hx Pacemaker - Immunizations Hx Diphtheria, Pertussis, Tetanus Vaccination: Yes History of Influenza Vaccine for 08/2017 - 01/2018 Season: Yes Influenza Administration Date for 08/2017 - 01/2018 Season: 08/25/17 Physical Exam - Vital signs Vitals: Temp Pulse Resp BP Pulse Ox 98.6 F 84 16 171/95 H 100 03/02/19 11:09 03/02/19 11:09 03/02/19 11:09 03/02/19 11:09 03/02/19 11:09 Course - Vital Signs Vital signs: Temp Pulse Resp BP Pulse Ox 98.6 F 84 16 171/95 H 100 03/02/19 11:09 03/02/19 11:09 03/02/19 11:09 03/02/19 11:09 03/02/19 11:09 Doctor's Discharge - Discharge Referrals: JUVENCIO HALL JR, MD [Primary Care Provider] - Follow up as needed
--- NOTE | 2019-03-02 12:17 | RADIOLOGY REPORT (SQ) ---
EXAM DESCRIPTION: CHEST 2 VIEWS COMPLETED DATE/TIME: 03/02/2019 11:33 am REASON FOR STUDY: cough COMPARISON: 12/09/2018 EXAM PARAMETERS: NUMBER OF VIEWS: two views TECHNIQUE: Digital Frontal and Lateral radiographic views of the chest acquired. RADIATION DOSE: NA LIMITATIONS: none FINDINGS: LUNGS AND PLEURA: Subsegmental airspace disease left upper lobe. No effusions. MEDIASTINUM AND HILAR STRUCTURES: No masses or contour abnormalities. HEART AND VASCULAR STRUCTURES: Stable heart size. No evidence for failure. BONES: No acute findings. HARDWARE: None in the chest. OTHER: No other significant finding. IMPRESSION: Left upper lobe pneumonia. TECHNICAL DOCUMENTATION: JOB ID: [id number] [employer]- All Rights Reserved Reading location - IP/workstation name: [email or web address]
[2019-03-02 12:47] LABS: A TYPE INFLUENZA AG NEGATIVE (NEGATIVE); B INFLUENZA AG NEGATIVE (NEGATIVE)
[2019-03-02 12:53] LABS: ABSOLUTE EOSINOPHILS # (AUTO) 0.2 10^3/uL (0.0-0.6); ABSOLUTE LYMPHOCYTES (AUTO) 0.6 10^3/uL (0.5-4.7); ABSOLUTE MONOCYTES (AUTO) 0.4 10^3/uL (0.1-1.4); ABSOLUTE NEUT (AUTO) 3.8 10^3/uL (1.7-8.2); BASOPHILS % (AUTO) 0.3 % (0-2); HEMATOCRIT 24.2 % (36.0-47.0); HEMOGLOBIN 8.2 g/dL (12.0-15.5); LYMPHOCYTES % (AUTO) 12.4 % (13-45); MEAN CORPUSCULAR HEMOGLOBIN 36.9 pg (27.0-33.4); MEAN CORPUSCULAR HGB CONC 33.8 g/dL (32.0-36.0); MEAN CORPUSCULAR VOLUME 109 fl (80-97); MONOCYTES % (AUTO) 8.5 % (3-13); PLATELET COUNT 121 10^3/uL (150-450); RED BLOOD COUNT 2.22 10^6/uL (3.72-5.28); RED CELL DISTRIBUTION WIDTH 14.8 % (11.5-14.0); SEGMENTED NEUTROPHILS % (AUTO) 74.8 % (42-78); TOTAL CELLS COUNTED % (AUTO) 100 %
[2019-03-02 13:10] LABS: ALANINE AMINOTRANSFERASE 41 U/L (9-52); ALBUMIN 3.8 g/dL (3.5-5.0); ALKALINE PHOSPHATASE 99 U/L (38-126); ANION GAP 12 (5-19); ASPARTATE AMINO TRANSFERASE 31 U/L (14-36); BILIRUBIN,DIRECT 0.5 mg/dL (0.0-0.4); BILIRUBIN,TOTAL 0.7 mg/dL (0.2-1.3); BLOOD UREA NITROGEN 35 mg/dL (7-20); CALCIUM 8.6 mg/dL (8.4-10.2); CARBON DIOXIDE 28 mmol/L (22-30); CHLORIDE 101 mmol/L (98-107); GLUCOSE 97 mg/dL (75-110); POTASSIUM 4.2 mmol/L (3.6-5.0); SODIUM 140.7 mmol/L (137-145); TOTAL PROTEIN 6.2 g/dL (6.3-8.2)
[2019-03-02] MEDS ORDERED: AZITHROMYCIN INJ 500 MG VIAL IV ONE (13:31)
[2019-03-02] MEDS ORDERED: CEFTRIAXONE 2 GM/D5W RTU 2 GM/50 ML RTUPB IV ONE (13:31)
--- NOTE | 2019-03-02 16:37 | ER Document Report ---
ED Respiratory Problem - General Chief Complaint: Shortness Of Breath Stated Complaint: COUGH/DIFFICULTY BREATHING Time Seen by Provider: 03/02/19 11:13 Primary Care Provider: JUVENCIO HALL JR, MD [NO LOCAL MD] - Follow up as needed Mode of Arrival: Ambulatory Information source: Patient Notes: Patient is a 64-year-old female comes to the emergency room with complaint of productive yellowish green cough very thick and chunky. Patient has a history of multiple myeloma and is receiving chemotherapy every 2 weeks. She also has end-stage renal disease and she receives dialysis on Fridays. She has had nasal congestion and discharge for the last 3 days. She is also had a productive green sputum as mentioned with a Hacche cough. Also she has been having some wheezing the does not let her sleep at night. She denies any fever but that is not unusual for her she states because of her multiple myeloma. Patient also states that her shortness of breath is gotten mildly increased. She feels like she should have been here a few days ago when she started to get sick but she thought she could fight it off by herself. Patient is supposed to have cataract surgery tomorrow this is the third time in morning tomorrow has been put off 3 times previous she has pretty much lost most vision in her eye on the left side. She states that she really wants to get this done because her is going to be going in driving the [place] [id number] [address] as a bucket list a dream and is going in March and she wants to be able to go with him. TRAVEL OUTSIDE OF THE [place] IN LAST 30 DAYS: No - HPI Patient complains to provider of: Asthma, Cough, Hurts to breath, Short of breath Onset: Other - 3 days ago Duration: Continuous, Worse/persistent Initiating Event: Allergy, Exertion Quality of pain: Achy Severity: Moderate Pain Level: 3 Short of Breath: Moderate Chest pain/discomfort: Constant Cough: Productive, Suspect aspiration Sputum amount: Moderate Sputum color: Green Sputum consistency: Thick At home treatment: Bronchodilators, Inhaled steroids Associated symptoms: Congestion, Cough, PND, Short of breath, Wheezing Similar symptoms previously: No Recently seen / treated by doctor: No - Related Data Allergies/Adverse Reactions: adhesive [Adhesive] Allergy (Severe, Verified 12/09/18 09:57) tears skin codeine [Codeine] Allergy (Severe, Verified 12/09/18 09:57) "crazy" erythromycin base [Erythromycin Base] Allergy (Intermediate, Verified 12/09/18 09:57) Anaphylaxis Penicillins Allergy (Mild, Verified 12/09/18 09:57) Hives levofloxacin [From Levaquin] Adverse Reaction (Severe, Verified 12/09/18 09:57) Swelling of tongue Past Medical History - General Information source: Patient - Social History Smoking Status: Never Smoker Cigarette use (# per day): No Chew tobacco use (# tins/day): No Smoking Education Provided: No Frequency of alcohol use: None Drug Abuse: None Lives with: Spouse/Significant other Family History: Reviewed & Not Pertinent, CAD - Father, Other - Clotting disorder-father Patient has suicidal ideation: No Patient has homicidal ideation: No - Past Medical History Cardiac Medical History: Reports: Hx Hypertension, Hx Peripheral Vascular Dis ease Denies: Hx Coronary Artery Disease, Hx Heart Attack Pulmonary Medical History: Reports: Hx Sleep Apnea - On CPap Denies: Hx Asthma, Hx Bronchitis, Hx COPD, Hx Pneumonia Neurological Medical History: Denies: Hx Cerebrovascular Accident, Hx Seizures Renal/ Medical History: Reports: Hx End Stage Renal Disease, Hx Hemodialysis, Hx Peritoneal Dialysis Musculoskeletal Medical History: Denies Hx Arthritis Psychiatric Medical History: Reports: Hx Depression Past Surgical History: Reports: Hx Gastric Bypass Surgery, Hx Orthopedic Surgery - Right TKA, left rotator cuff, Hx Tonsillectomy, Hx Vascular Surgery - Left arm fistula, Other - Stem cell transplant, bone marrow biopsy, Port-A-Cath. Denies: Hx Hysterectomy, Hx Pacemaker - Immunizations Hx Diphtheria, Pertussis, Tetanus Vaccination: Yes Hx Pneumococcal Vaccination: 08/26/13 Review of Systems - Review of Systems Constitutional: No symptoms reported EENT: See HPI, Nose congestion, Throat pain Cardiovascular: See HPI, Dyspnea Respiratory: See HPI, Cough, Short of breath, Sputum, Wheezing Gastrointestinal: No symptoms reported Genitourinary: No symptoms reported Female Genitourinary: No symptoms reported Musculoskeletal: No symptoms reported Skin: No symptoms reported Hematologic/Lymphatic: No symptoms reported Neurological/Psychological: No symptoms reported -: Yes All other systems reviewed and negative Physical Exam - Vital signs Vitals: Temp Pulse Resp BP Pulse Ox 98.6 F 84 16 171/95 H 100 03/02/19 11:09 03/02/19 11:09 03/02/19 11:09 03/02/19 11:09 03/02/19 11:09 Interpretation: Hypertensive - Notes Notes: PHYSICAL EXAMINATION: GENERAL: Patient is a well-nourished well-developed 64-year-old female who is in no apparent distress on physical exam tonight but who does appear somewhat in moderate discomfort. HEAD: Atraumatic, normocephalic. EYES: Pupils equal round and reactive to light, extraocular movements intact, conjunctiva are normal. ENT: Examination head and upper airway showed nasal mucosa to be mildly erythematous and edematous with no rhinorrhea noted at this time. Patient displays no frontal or maxillary sinus tenderness to palpation. Examination of the ears show bilateral TMs to be bulging but no fluid levels noted. Posterior pharynx shows some mild erythema some major drainage greenish in color. Uvula is midline with no exudate. And airway is patent.. NECK: Normal range of motion, supple without lymphadenopathy LUNGS: patient has bilateral breath sounds breath sounds are moderately decreased throughout there is noted inspiratory and expiratory wheeze in bilateral lung talley very faint but present. No other sounds heard at this time. Rhonchi rales not heard HEART: Regular rate and rhythm without murmurs Female : deferred Musculoskeletal: Normal range of motion, no pitting or edema. No cyanosis. NEUROLOGICAL: Normal speech, normal gait. Normal sensory, motor exams PSYCH: Normal mood, normal affect. SKIN: Warm, Dry, normal turgor, no rashes or lesions noted. Course - Re-evaluation Re-evalutation: 03/02/19 16:52 Patient did get somewhat better with her treatments here when I had received back the left upper lobe pneumonia I went ahead and ordered patient Zithromax IV and Rocephin 2 g IV. Given her depressed immune system status. I also contacted Dr. Lynn and discussed the case with her. Informed her what I did and she felt that was appropriate. She has been the patient appeared to look like and I felt like patient was comfortable and smart that if she were to go home and were to get worse she would know to come back. I did feel this very much so. Patient is a little upset because she can have cataract surgery tomorrow but she understands that going with an infection would not be a good thing for her. So with Dr. Mena's permission I put patient on Zithromax palpation as well I put her on some Tessalon Perles for the cough and I put her on some Chlor-Trimeton for what I feel is the cause of her ethmoid sphenoid kind of a presentation sinusitis. - Vital Signs Vital signs: Temp Pulse Resp BP Pulse Ox 98.4 F 84 23 H 143/88 H 95 03/02/19 14:09 03/02/19 11:09 03/02/19 14:01 03/02/19 14:01 03/02/19 14:01 - Laboratory Result Diagrams: 03/02/19 12:20 03/02/19 12:20 Laboratory results interpreted by me: 03/02/19 03/02/19 12:20 12:20 RBC 2.22 L Hgb 8.2 L Hct 24.2 L MCV 109 H MCH 36.9 H RDW 14.8 H Plt Count 121 L Lymphocytes % 12.4 L BUN 35 H Creatinine 7.86 H Est GFR ( Amer) 6 L Est GFR (Non-Af Amer) 5 L Direct Bilirubin 0.5 H Total Protein 6.2 L Discharge - Discharge Clinical Impression: Left upper lobe pneumonia Qualifiers: Pneumonia type: due to unspecified organism Qualified Code(s): J18.1 - Lobar pneumonia, unspecified organism ARF (acute renal failure) Qualifiers: Acute renal failure type: unspecified Qualified Code(s): N17.9 - Acute kidney failure, unspecified CKD (chronic kidney disease) Qualifiers: Chronic kidney disease stage: on chronic dialysis Qualified Code(s): N18.6 - End stage renal disease Disposition: HOME, SELF-CARE Instructions: Pneumonia ([facility]) Additional Instructions: I have discussed her case with Dr. Lynn and she feels that you are capable of going home as I do. We have given you 2 doses of antibiotics here and I am placing you on the Zithromax pack that you need to start tomorrow. She wants to follow up with her sometime this week. Or the first of next week which ever your appointment is set for. Continue your nebulizer treatments at home or your MDIs which have when you have. You can use antihistamine without a decongestant for the runny nose. Should you get an increase in secretions or increasing shortness of breath or increase in temperature return to ER once for recheck. Prescriptions: Azithromycin [Zithromax 250 mg Tablet] 250 mg PO ASDIR PRN #6 tablet PRN Reason: Chlorpheniramine Maleate [Chlor-Trimeton 4 mg Tablet] 1 tab PO Q4 PRN #1 pkg PRN Reason: Forms: Elevated Blood Pressure Referrals: JUVENCIO HALL JR, MD [NO LOCAL MD] - Follow up as needed
[2019-03-02 16:46] VITALS: BP 143/86
== END 2019-03-02 16:55 | disposition home or self-care (01) ==
LOC: ER 11:00
DX: J18.1 Lobar pneumonia, unspecified organism (principal); N17.9 Acute kidney failure, unspecified; I12.0 Hypertensive chronic kidney disease with stage 5 chronic kidney disease or end stage renal disease; N18.6 End stage renal disease; R06.02 Shortness of breath; R05 Cough
CPT/HCPCS: 36591; 94640; 99283; 96365; 36415; 87040; 87070; 87205; 85025; 87077; 80053; 87804; 71046; J0456; A9270; J0696; J7620

== ENCOUNTER 2019-03-11 18:44 | Emergency (ER) | payer MEDICARE | END 2019-03-11 18:50 | disposition left against medical advice (07) | LOC: ER 18:44 | DX: Z53.21 Procedure and treatment not carried out due to patient leaving prior to being seen by health care provider (principal) ==

== ENCOUNTER 2019-03-11 19:35 | Emergency (ER) | payer MEDICARE, OTHER ==
[2019-03-11] MEDS ORDERED: IPRATROPIUM/ALBUTEROL 0.5-2.5 MG/3 ML AMPUL NEB ONE (20:53)
--- NOTE | 2019-03-11 20:59 | ER Document Report ---
ED Medical Screen (RME) - General Chief Complaint: Shortness Of Breath Stated Complaint: SHORTNESS OF BREATH Time Seen by Provider: 03/11/19 20:48 Primary Care Provider: FLORENTINO HASSAN MD [Primary Care Provider] - Follow up as needed Mode of Arrival: Wheelchair Information source: Patient, Relative Notes: Patient is a 64-year-old female returns to the emergency room with increasing shortness of breath. Patient was seen here in the emergency room 1 week ago and diagnosed with upper lobe pneumonia was sent home on a Z-Vikas after receiving IV antibiotics here. She followed up with her primary care doctor loss on of last week and was told she was getting better. Patient actually felt better at that time. Then over the next few days and started to develop into a Hacche cough again. Patient has a history of multiple myeloma and she is also a dialysis patient receiving dialysis on Sunday and Fridays. Patient had elected to go home on the antibiotics for a long discussion. She is now having a nonproductive cough whereas previously it was a productive green cough. Patient was sent here today by Dr. Hassan's office to get a chest x-ray as an outpatient however some communication was mixed up and patient signed into the emergency room and is being seen here instead. She is complaining of increasing shortness of breath dyspnea on exertion. TRAVEL OUTSIDE OF THE [place] IN LAST 30 DAYS: No - Related Data Allergies/Adverse Reactions: adhesive [Adhesive] Allergy (Severe, Verified 03/11/19 19:57) tears skin codeine [Codeine] Allergy (Severe, Verified 03/11/19 19:57) "crazy" erythromycin base [Erythromycin Base] Allergy (Intermediate, Verified 03/11/19 19:57) Anaphylaxis Penicillins Allergy (Mild, Verified 03/11/19 19:57) Hives levofloxacin [From Levaquin] Adverse Reaction (Severe, Verified 03/11/19 19:57) Swelling of tongue Past Medical History - General Information source: Patient, [facility] Records - Social History Cigarette use (# per day): No Chew tobacco use (# tins/day): No Frequency of alcohol use: Rare Drug Abuse: None Lives with: Family Family history: Reviewed & Not Pertinent - Past Medical History Cardiac Medical History: Reports: Hx Hypertension, Hx Peripheral Vascular Dis ease Denies: Hx Coronary Artery Disease, Hx Heart Attack Pulmonary Medical History: Reports: Hx Sleep Apnea - On CPap Denies: Hx Asthma, Hx Bronchitis, Hx COPD, Hx Pneumonia Neurological Medical History: Denies: Hx Cerebrovascular Accident, Hx Seizures Renal/ Medical History: Reports: Hx End Stage Renal Disease, Hx Hemodialysis. Denies: Hx Peritoneal Dialysis - Hemo MWF Musculoskeltal Medical History: Denies Hx Arthritis Psychiatric Medical History: Reports: Hx Depression Past Surgical History: Reports: Hx Gastric Bypass Surgery, Hx Orthopedic Surgery - Right TKA, left rotator cuff, Hx Tonsillectomy, Hx Vascular Surgery - Left arm fistula, Other - Stem cell transplant, bone marrow biopsy, Port-A-Cath. Denies: Hx Hysterectomy, Hx Pacemaker - Immunizations Hx Diphtheria, Pertussis, Tetanus Vaccination: Yes History of Influenza Vaccine for 08/2017 - 01/2018 Season: Yes Influenza Administration Date for 08/2017 - 01/2018 Season: 08/25/17 Review of Systems - Review of Systems Constitutional: No symptoms reported EENT: No symptoms reported Cardiovascular: No symptoms reported Respiratory: See HPI, Cough, Hurts to breathe, Short of breath, Wheezing Gastrointestinal: No symptoms reported Genitourinary: No symptoms reported Female Genitourinary: No symptoms reported Musculoskeletal: No symptoms reported Skin: No symptoms reported Hematologic/Lymphatic: No symptoms reported Neurological/Psychological: No symptoms reported -: Yes All other systems reviewed and negative Physical Exam - Vital signs Vitals: Temp Pulse Resp BP Pulse Ox 98.4 F 78 18 173/85 H 96 03/11/19 20:31 03/11/19 20:31 03/11/19 20:31 03/11/19 20:31 03/11/19 20:31 Interpretation: Hypertensive - Notes Notes: PHYSICAL EXAMINATION: GENERAL: Patient is a well-nourished well-developed ill-appearing 64-year-old female HEAD: Atraumatic, normocephalic. EYES: Pupils equal round and reactive to light, extraocular movements intact, conjunctiva are normal. ENT: Examination head and upper airway showed nasal mucosa to be erythematous and edematous with rhinorrhea noted. Patient has bilateral nasal congestion noted. Patient has some moderate amount of postnasal drainage noted. NECK: Normal range of motion, supple without lymphadenopathy LUNGS: Patient has bilateral breath sounds breath sounds are decreased throughout with audible expiratory wheeze. Scattered faint rhonchi is also heard throughout the lung talley. Also noted is some moderate amount of rales in the bases bilaterally. HEART: Regular rate and rhythm without murmurs Female : deferred Musculoskeletal: Normal range of motion, no pitting or edema. No cyanosis. NEUROLOGICAL: Normal speech, normal gait. Normal sensory, motor exams PSYCH: Normal mood, normal affect. SKIN: Warm, Dry, normal turgor, no rashes or lesions noted. Course - Re-evaluation Re-evalutation: 03/11/19 20:58 I have greeted and performed a rapid initial assessment of this patient. A comprehensive ED assessment and evaluation of the patient, analysis of test results and completion of the medical decision making process will be conducted by additional ED providers. Dictation of this chart was performed using voice recognition software; therefore, there may be some unintended grammatical errors. - Vital Signs Vital signs: Temp Pulse Resp BP Pulse Ox 98.4 F 78 18 173/85 H 96 03/11/19 20:31 03/11/19 20:31 03/11/19 20:31 03/11/19 20:31 03/11/19 20:31 Doctor's Discharge - Discharge Referrals: FOLRENTINO HASSAN MD [Primary Care Provider] - Follow up as needed
--- NOTE | 2019-03-11 22:54 | ER Document Report ---
ED General - General Chief Complaint: Shortness Of Breath Stated Complaint: SHORTNESS OF BREATH Time Seen by Provider: 03/11/19 20:48 Primary Care Provider: VOLODYMYR TARIQ MD [ACTIVE STAFF] - Follow up in 3-5 days Mode of Arrival: Wheelchair Notes: Patient is a very pleasant 64-year-old female with a history of end-stage renal disease as well as multiple myeloma. She is followed by Dr. Tariq for oncology. She does get chemotherapy. She was diagnosed with pneumonia approximately a week ago. She says she continues to have some coughing and some intermittent trouble breathing. She therefore had a x-ray done outpatient which showed pneumonia and she was told to come to the ER. She denies any fevers. She denies any other complaints at this time. TRAVEL OUTSIDE OF THE [place] IN LAST 30 DAYS: No - Related Data Allergies/Adverse Reactions: adhesive [Adhesive] Allergy (Severe, Verified 03/11/19 22:54) tears skin codeine [Codeine] Allergy (Severe, Verified 03/11/19 22:54) "crazy" erythromycin base [Erythromycin Base] Allergy (Intermediate, Verified 03/11/19 22:54) Anaphylaxis Penicillins Allergy (Mild, Verified 03/11/19 22:54) Hives levofloxacin [From Levaquin] Adverse Reaction (Severe, Verified 03/11/19 22:54) Swelling of tongue Past Medical History - General Information source: Patient, [facility] Records - Social History Smoking Status: Former Smoker Cigarette use (# per day): No Chew tobacco use (# tins/day): No Frequency of alcohol use: Rare Drug Abuse: None Lives with: Family Family History: Reviewed & Not Pertinent, CAD - Father, Other - Clotting disorder-father Patient has suicidal ideation: No Patient has homicidal ideation: No - Past Medical History Cardiac Medical History: Reports: Hx Hypertension, Hx Peripheral Vascular Disease Denies: Hx Coronary Artery Disease, Hx Heart Attack Pulmonary Medical History: Reports: Hx Sleep Apnea - On CPap Denies: Hx Asthma, Hx Bronchitis, Hx COPD, Hx Pneumonia Neurological Medical History: Denies: Hx Cerebrovascular Accident, Hx Seizures Renal/ Medical History: Reports: Hx End Stage Renal Disease, Hx Hemodialysis. Denies: Hx Peritoneal Dialysis - Hemo MWF Musculoskeletal Medical History: Denies Hx Arthritis Psychiatric Medical History: Reports: Hx Depression Past Surgical History: Reports: Hx Gastric Bypass Surgery, Hx Orthopedic Surgery - Right TKA, left rotator cuff, Hx Tonsillectomy, Hx Vascular Surgery - Left arm fistula, Other - Stem cell transplant, bone marrow biopsy, Port-A-Cath. Denies: Hx Hysterectomy, Hx Pacemaker - Immunizations Hx Diphtheria, Pertussis, Tetanus Vaccination: Yes Hx Pneumococcal Vaccination: 08/26/13 Review of Systems - Review of Systems Notes: My Normal Review Basic REVIEW OF SYSTEMS: CONSTITUTIONAL : Denies fever, chills, or sweats. Denies recent illness. EENT: Denies eye, ear, throat, or mouth pain or symptoms. Denies nasal or sinus congestion. CARDIOVASCULAR: Denies chest pain. RESPIRATORY: Some recurrent coughing with mucus production. GASTROINTESTINAL: Denies abdominal pain. Denies nausea, vomiting, or diarrhea. MUSCULOSKELETAL: Denies neck or back pain or joint pain or swelling. SKIN: Denies rash or skin lesions. HEMATOLOGIC : Multiple myeloma NEUROLOGICAL: Denies altered mental status or loss of consciousness. Denies headache. Denies weakness or paralysis or loss of use of either side. Denies problems with gait or speech. Denies sensory or motor loss. ALL OTHER SYSTEMS REVIEWED AND NEGATIVE. Physical Exam - Vital signs Vitals: Temp Pulse Resp BP Pulse Ox 98.4 F 78 18 173/85 H 96 03/11/19 20:31 03/11/19 20:31 03/11/19 20:31 03/11/19 20:31 03/11/19 20:31 - Notes Notes: General Appearance: Well nourished, alert, cooperative, no acute distress, no obvious discomfort. Appearing. No increased work of breathing. Vitals: reviewed, See vital signs table. Head: no swelling or tenderness to the head Eyes: PERRL, EOMI, Conjuctiva clear Mouth: No decreasd moisture Neck: Supple, no neck tenderness, No thyromegaly Lungs: No wheezing, No rales, No rhonci, No accessory muscle use, good air exchange bilaterally. Heart: Normal rate, Regular rythm, No murmur, no rub Abdomen: Normal BS, soft, No rigidity, No abdominal tenderness, No guarding, no rebound, no abdominal masses, no organomegaly Extremities: good pulses in all extremities, no swelling or tenderness in the extremities, no edema. Skin: warm, dry, appropriate color, no rash Neuro: speech clear, oriented x 3, normal affect, responds appropriately to questions. Course - Re-evaluation Re-evalutation: 03/12/19 07:07 Patient looks well normal vital signs. I feel she is safe to be discharged home. I encouraged her to return to ER immediately if she has difficulty breath ing, fevers, or feels that she is worsening any way. I did look at the x-ray that was performed out patiently. Is not really a change from the one from before. She may have some underlying pneumonia there. I will placed on doxycycline. Being the patient is on chemo and followed by oncology I did speak with her oncologist, Dr. Tariq, who agrees with plan. I informed patient to follow-up closely with her doctor for reevaluation this week and to return to ER if she feels like she is getting worse. Patient agrees with plan will be discharged home. Dictation of this chart was performed using voice recognition software; therefore, there may be some unintended grammatical errors. - Vital Signs Vital signs: Temp Pulse Resp BP Pulse Ox 98.4 F 87 18 161/91 H 98 03/11/19 20:31 03/12/19 00:26 03/12/19 00:26 03/12/19 00:26 03/12/19 00:26 - Laboratory Result Diagrams: 03/11/19 22:45 03/11/19 22:45 Laboratory results interpreted by me: 03/11/19 03/11/19 22:45 22:45 RBC 2.44 L Hgb 9.1 L Hct 26.5 L MCV 109 H MCH 37.1 H RDW 14.8 H Plt Count 145 L Potassium 3.5 L BUN 30 H Creatinine 7.40 H Est GFR ( Amer) 7 L Est GFR (Non-Af Amer) 6 L Direct Bilirubin 0.8 H ALT 54 H - EKG Interpretation by Me Additional EKG results interpreted by me: 03/11/19 22:52 EKG is reviewed and interpreted by me. EKG shows sinus rhythm with a rate of [address] segment elevation or depression. No ischemic T wave inversions. HI interval, QRS duration are within normal range. QT interval is prolonged. Discharge - Discharge Clinical Impression: Pneumonia Qualifiers: Pneumonia type: due to unspecified organism Laterality: left Lung location: upper lobe of lung Qualified Code(s): J18.1 - Lobar pneumonia, unspecified organism Condition: Good Disposition: HOME, SELF-CARE Additional Instructions: We will placed on a new antibiotic called doxycycline. I have given the first dose here. This antibiotic will make your skin more sensitive to the sun and therefore you should appear skin covered when going outside in the sunlight. Please call Dr. Tariq office to make a close follow-up appointment. Please return to the ER if you have worsening difficulty breathing, fevers, or feel like you are worsening. Prescriptions: RX: Doxycycline Hyclate 100 mg PO BID #14 capsule Referrals: VOLODYMYR TARIQ MD [ACTIVE STAFF] - Follow up in 3-5 days
[2019-03-11 22:59] LABS: ABSOLUTE EOSINOPHILS # (AUTO) 0.3 10^3/uL (0.0-0.6); ABSOLUTE LYMPHOCYTES (AUTO) 1.1 10^3/uL (0.5-4.7); ABSOLUTE MONOCYTES (AUTO) 0.4 10^3/uL (0.1-1.4); ABSOLUTE NEUT (AUTO) 4.2 10^3/uL (1.7-8.2); BASOPHILS % (AUTO) 0.6 % (0-2); HEMATOCRIT 26.5 % (36.0-47.0); HEMOGLOBIN 9.1 g/dL (12.0-15.5); LYMPHOCYTES % (AUTO) 18.4 % (13-45); MEAN CORPUSCULAR HEMOGLOBIN 37.1 pg (27.0-33.4); MEAN CORPUSCULAR HGB CONC 34.2 g/dL (32.0-36.0); MEAN CORPUSCULAR VOLUME 109 fl (80-97); MONOCYTES % (AUTO) 6.3 % (3-13); PLATELET COUNT 145 10^3/uL (150-450); RED BLOOD COUNT 2.44 10^6/uL (3.72-5.28); RED CELL DISTRIBUTION WIDTH 14.8 % (11.5-14.0); SEGMENTED NEUTROPHILS % (AUTO) 69.7 % (42-78); TOTAL CELLS COUNTED % (AUTO) 100 %; WHITE BLOOD COUNT 6.1 10^3/uL (4.0-10.5)
[2019-03-11 23:26] LABS: ALANINE AMINOTRANSFERASE 54 U/L (9-52); ALKALINE PHOSPHATASE 118 U/L (38-126); ANION GAP 13 (5-19); ASPARTATE AMINO TRANSFERASE 34 U/L (14-36); BILIRUBIN,DIRECT 0.8 mg/dL (0.0-0.4); BILIRUBIN,TOTAL 0.9 mg/dL (0.2-1.3); BLOOD UREA NITROGEN 30 mg/dL (7-20); CALCIUM 9.2 mg/dL (8.4-10.2); CARBON DIOXIDE 25 mmol/L (22-30); CHLORIDE 102 mmol/L (98-107); GLUCOSE 94 mg/dL (75-110); POTASSIUM 3.5 mmol/L (3.6-5.0); SODIUM 139.6 mmol/L (137-145); TOTAL PROTEIN 6.6 g/dL (6.3-8.2)
[2019-03-11] MEDS ORDERED: DOXYCYCLINE HYCLATE 100 MG TABLET PO ONE (23:54)
[2019-03-12 00:27] VITALS: BP 161/91
--- NOTE | 2019-03-12 08:29 | EKG REPORT ---
SEVERITY:- ABNORMAL ECG - SINUS RHYTHM ANTERIOR INFARCT, OLD : Confirmed by: Karine Duran MD 12-Mar-2019 08:29:19
== END 2019-03-12 00:27 | disposition home or self-care (01) ==
LOC: ER 19:35
DX: J18.1 Lobar pneumonia, unspecified organism (principal); C90.00 Multiple myeloma not having achieved remission; Z79.899 Other long term (current) drug therapy; I12.0 Hypertensive chronic kidney disease with stage 5 chronic kidney disease or end stage renal disease; N18.6 End stage renal disease; Z99.2 Dependence on renal dialysis; Z91.048 Other nonmedicinal substance allergy status; Z88.5 Allergy status to narcotic agent; Z88.0 Allergy status to penicillin; Z87.892 Personal history of anaphylaxis; Z88.1 Allergy status to other antibiotic agents; Z87.891 Personal history of nicotine dependence
CPT/HCPCS: 93005; 36591; 94640; 99285; 36415; 87040; 85025; 80053; 83605; 93010; A9270 ×2; 71046; J7620

== ENCOUNTER → 2019-03-11 | Outpatient (CLI) | payer MEDICARE, OTHER ==
--- NOTE | 2019-03-11 21:45 | RADIOLOGY REPORT (SQ) ---
EXAM DESCRIPTION: XR CHEST 2 VIEWS COMPLETED DATE/TME: 03/11/2019 19:08 CLINICAL HISTORY: 64 years Female PNEUMONIA COMPARISON: 03/02/2019. FINDINGS: Unchanged cardiac mediastinal silhouette. Atelectasis in the perihilar regions bilaterally extending into the right midlung and left upper lobe. Findings on the left appear unchanged from the previous study and may reflect atelectasis versus pneumonia. [id number] catheter in place in unchanged position. Long segment stent in the left arm. Reverse shoulder prosthesis on the right. There is atelectasis or infiltrate in the left lung base. Blunting of the costophrenic angles bilaterally suggesting small effusions. IMPRESSION: Unchanged area of atelectasis or infiltrate in the left upper lobe. Atelectasis in the left lung base with small left effusion which has increased when compared to the previous Blunting of the right posterior sulcus also suggesting small amount of fluid
== END ==
LOC: RAD 19:06
PROVIDERS: ATTEND Internal Medicine
DX: J15.9 Unspecified bacterial pneumonia (principal)
CPT/HCPCS: 71046

== ENCOUNTER → 2019-08-14 | Outpatient (CLI) | payer MEDICARE, OTHER ==
--- NOTE | 2019-08-14 15:55 | RADIOLOGY REPORT (SQ) ---
EXAM DESCRIPTION: CHEST 2 VIEWS COMPLETED DATE/TIME: 08/14/2019 2:15 pm REASON FOR STUDY: T82.514A BREAKDOWN (MECHANICAL) OF INFUSION CATHETER, INIT ENCNTR COMPARISON: None. EXAM PARAMETERS: NUMBER OF VIEWS: two views TECHNIQUE: Digital Frontal and Lateral radiographic views of the chest acquired. RADIATION DOSE: NA LIMITATIONS: none FINDINGS: LUNGS AND PLEURA: Limited opacification above the minor fissure. Small right pleural effu alonzo. MEDIASTINUM AND HILAR STRUCTURES: No masses or contour abnormalities. HEART AND VASCULAR STRUCTURES: Heart size is borderline. No pulmonary edema. BONES: No acute findings. HARDWARE: Injection port on the left. Tip of the catheter is in the superior vena cava. OTHER: No other significant finding. IMPRESSION: Borderline heart size without pulmonary edema. Right pleural effusion. Opacification a mariangel the fissure may represent fluid in the fissure. TECHNICAL DOCUMENTATION: JOB ID: [id number] [employer]- All Rights Reserved Reading location - IP/workstation name: [email or web address]
== END ==
LOC: RAD 13:56
PROVIDERS: ATTEND Surgery
DX: T82.514A Breakdown (mechanical) of infusion catheter, initial encounter (principal)
CPT/HCPCS: 71046

== ENCOUNTER → 2019-11-04 | Outpatient (CLI) | payer MEDICARE, OTHER ==
--- NOTE | 2019-11-04 17:40 | XCELERA REPORT ---
[address] [address] Transthoracic Echocardiogram Report Name: PRIYA ARAUZ Age: 64 yrs Gender: Female : 1955 Patient Status: Outpatient Patient Location: [facility] Study Date: 11/04/2019 11:29 AM Height: 60 in Weight: 142 lb BSA: 1.6 m2 Reason For Study: HTN Ordering Physician: VOLODYMYR PERRIN Performed By: Singh Arreguin Interpretation Summary Poor study due to poor endocardial definition. Mod calcification aortic root, not dilated. Calcific with 3 calcified cusps with OTY30pu Hg and mild /mod .AR with PHT 471ms and no LV enlargement, LVESD 32mm. Mod MAC, with no MS, mild MR with no MVP, and mild FRANCISCA 35.4 enlargement. No LVH, LVEF normal @55-60%visually with multiple regional wall motion abnormality, unable to assess all segments, see pictorals. No LV enlargement. LVDD +. No LV enlargement. RH is not enlarged, mild TR with mild/mod pulm hypertension RVSP 45 (RAP 3). MMode/2D Measurements & Calculations RVDd: 3.0 cm LVIDd: 5.5 cm FS: 31.3 % Ao root diam: IVSd: 0.85 cm LVIDs: 3.8 cm EDV(Teich): 2.8 cm LVPWd: 0.93 cm 145.7 ml Ao root area: ESV(Teich): 60.3 ml 6.2 cm2 LA dimension: EF(Teich): 58.6 % 3.8 cm LVLd ap4: 8.5 cm SV(MOD-sp4): EDV(MOD-sp4): 79.0 ml 143.0 ml LVLs ap4: 8.0 cm ESV(MOD-sp4): 64.0 ml EF(MOD-sp4): 55.2 % Doppler Measurements & Calculations MV E max issac: MV P1/2t max issac: Ao V2 max: AI max issac: 147.5 cm/sec 143.0 cm/sec 240.3 cm/sec 473.5 cm/sec MV A max issac: MV P1/2t: 82.5 msec Ao max PG: AI max P.3 cm/sec MVA(P1/2t): 2.7 cm2 23.1 mmHg 89.7 mmHg MV E/A: 0.94 MV dec slope: AI dec slope: 285.4 cm/sec2 507.5 cm/sec2 AI P1/2t: MV dec time: 0.19 sec 485.9 msec LV V1 max PG: PA V2 max: TR max issac: AV P1/2t-pr_phl: 5.1 mmHg 102.2 cm/sec 324.3 cm/sec 485.9 msec LV V1 max: PA max P.2 mmHg TR max P.5 cm/sec 42.1 mmHg MV P1/2t-pr_phl: 82.5 msec I WMSI = 1.46 % Normal = 54 Segments Size X - Cannot 2 - 4 - 1-2 small Interpret 1 - Normal Hypokinetic 3 - AkineticDyskinetic 3-5 moderate 5 - 6-14 large Aneurysmal 15-16 diffuse : VOLODYMYR PERRIN Andre
== END ==
LOC: SP 11:04
PROVIDERS: ATTEND Internal Medicine Hematology & Oncology
DX: I10 Essential (primary) hypertension (principal); I73.9 Peripheral vascular disease, unspecified
CPT/HCPCS: 93306